=== PATIENT | female | born 1970 | race Hispanic/Latino ===

== ENCOUNTER 2016-06-27 17:18 | Emergency (ER) | payer OTHER ==
[~2016-06-27] VITALS: Ht 162.6 cm; Wt 82.1 kg
[~2016-06-27 17:18] MED LIST: ALBUTEROL0.09 MG/A1 INH; ANTIVERT 25MG #1 PAC PO; ASPIRIN CHILDRE81 MG PO; ASPIRIN EC81 M1 PO; COZAAR50 M1 PO; DOLOBID500 MG PO; FLEXERIL10 MG PO; GLUCOPHAGE1000 M1 PO; HUMALOG100 U/ML SC; HYDROCHLOROTH12.5 M2 PO; IBU800 MG PO; IBUPROFEN800 MG PO; LANTUS INS100 UNITS/ SC; LOSARTAN POTAS100 MG PO; LOSARTAN POTASS50 MG PO; MEDROL DOSEPAK1 PAC PO; METFORMIN HYD1000 MG PO; MOTRIN600 MG PO; PERCOCET 325 MG1 TA2 PO; PERCOCET 5-3251 EACH PO; PRAVASTATIN SOD20 M2 PO; QUETIAPINE FUMA50 MG PO; ROBITUSSIN W/CO10 ML PO; SERTRALINE HCL100 MG PO; TESSALON PERLE100 M1 PO; TESSALON PERLE100 MG PO; TRAMADOL HCL50 M1 PO; TRAMADOL50 MG PO; VOLTAREN75 MG PO
[2016-06-27 17:52] LABS: ABSOLUTE BASOPHIL COUNT 0 /CUMM (0.0-0.2); ABSOLUTE EOSINOPHIL COUNT 0.1 /CUMM (0.0-0.7); ABSOLUTE GRANULOCYTE CT 6.1 /CUMM (1.4-6.5); ABSOLUTE LYMPH COUNT 1.6 /CUMM (1.2-3.4); ABSOLUTE MONOCYTE COUNT 0.6 /CUMM (0.10-0.60); BASOPHIL % 0.3 % (0.0-2.0); EOSINOPHIL % 1.1 % (0-5); GRANULOCYTE % 72.2 % (42.2-75.2); HEMATOCRIT 39.8 % (37-47); MEAN CORPUSCULAR HGB 28.4 PG (27.0-31.0); MEAN CORPUSCULAR HGB CONC 33.8 G/DL (33.0-37.0); MEAN PLATELET VOLUME 7.7 FL (7.4-10.4); PLATELET COUNT 329 /CUMM (130-400); RED BLOOD CELL CT 4.74 /CUMM (4.20-5.40); WHITE BLOOD CELL COUNT 8.5 /CUMM (4.8-10.8)
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
[2016-06-27] MEDS ORDERED: LANTUS100 UNIT/1 SC ×2 (18:26)
[2016-06-27] MEDS ORDERED: TRAZODONE HCL50 M1 PO (18:27)
[2016-06-27] MEDS ORDERED: TRAZODONE HCL100 M1 PO (18:27)
[2016-06-27] MEDS ORDERED: NOVOLOG FL100 UNIT/1 SC (18:28)
--- NOTE | 2016-06-27 19:38 | RADIOLOGY REPORT ---
EXAMINATION: XR CHEST CLINICAL INFORMATION: Chest pain. Assess for cardiomegaly. COMPARISON: Chest radiography 05/24/2016. TECHNIQUE: PA and lateral views of the chest were obtained. FINDINGS: The lungs are mildly hypoexpanded. No focal consolidation, pleural effusion, pulmonary edema, or pneumothorax. Mediastinal contours are unchanged. No evidence of cardiomegaly. No acute osseous abnormalities. IMPRESSION: Hypoexpanded lungs without acute pulmonary pathology demonstrated.
[2016-06-27 22:23] VITALS: BP 143/75
== END 2016-06-27 23:20 ==
LOC: ERH 17:18
PROVIDERS: Physician Assistant
DX: R07.89 Other chest pain (principal)
CPT/HCPCS: 93005; 93010; 96374; 96376

== ENCOUNTER 2016-09-24 22:47 | Emergency (ER) | payer OTHER ==
[~2016-09-24 22:47] MED LIST changes: +LANTUS100 UNIT/1 SC; +NOVOLOG FL100 UNIT/1 SC; +TRAZODONE HCL100 M1 PO; +TRAZODONE HCL50 M1 PO
[2016-09-24 23:12] LABS: ABSOLUTE BASOPHIL COUNT 0.1 /CUMM (0.0-0.2); ABSOLUTE EOSINOPHIL COUNT 0.1 /CUMM (0.0-0.7); ABSOLUTE GRANULOCYTE CT 5.8 /CUMM (1.4-6.5); ABSOLUTE LYMPH COUNT 2.4 /CUMM (1.2-3.4); ABSOLUTE MONOCYTE COUNT 0.7 /CUMM (0.10-0.60); BASOPHIL % 0.9 % (0.0-2.0); EOSINOPHIL % 1.2 % (0-5); GRANULOCYTE % 63.7 % (42.2-75.2); HEMATOCRIT 41.7 % (37-47); MEAN CORPUSCULAR HGB 28.5 PG (27.0-31.0); MEAN CORPUSCULAR VOLUME 83.9 FL (81.0-99.0); MEAN PLATELET VOLUME 7.8 FL (7.4-10.4); PLATELET COUNT 317 /CUMM (130-400); RBC DISTRIBUTION WIDTH 12.6 % (11.5-14.5); RED BLOOD CELL CT 4.97 /CUMM (4.20-5.40); WHITE BLOOD CELL COUNT 9.1 /CUMM (4.8-10.8)
--- NOTE | 2016-09-24 23:34 | RADIOLOGY REPORT ---
EXAMINATION: CHEST 2 VIEWS CLINICAL INFORMATION: Chest pain. COMPARISON: 06/27/2016. TECHNIQUE: PA and lateral views of the chest were obtained. FINDINGS: The cardiac silhouette is not enlarged. The mediastinal and hilar contours are unremarkable. There are neither pleural effusions nor pneumothoraces. There are no consolidations. The osseous structures are unremarkable. IMPRESSION: No evidence for acute disease.
[2016-09-25 01:05] VITALS: BP 131/91
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
[2016-09-25] MEDS ORDERED: ULTRAM50 M1 PO (02:23)
== END 2016-09-25 02:30 ==
LOC: ERH 22:47
PROVIDERS: Emergency Medicine
DX: R07.1 Chest pain on breathing (principal)
CPT/HCPCS: 93005; 93010

== ENCOUNTER 2016-11-11 12:31 | Emergency (ER) | payer OTHER ==
[~2016-11-11] VITALS: Ht 162.6 cm; Wt 82.1 kg
[~2016-11-11 12:31] MED LIST changes: +ULTRAM50 M1 PO
--- NOTE | 2016-11-11 12:53 | ED GENERAL ADULT ---
History of Present Illness General Chief Complaint: Fall Stated Complaint: FALL R KNEE PAIN, DIZZINESS Source: patient Exam Limitations: no limitations Vital Signs & Intake/Output Vital Signs & Intake/Output Vital Signs Date Time Temp Pulse Resp B/P B/P Pulse O2 O2 Flow FiO2 Mean Ox Delivery Rate 11/11 1306 98 Room Air 11/11 1233 96.0 125 20 90/63 98 Room Air Allergies Coded Allergies: adhesive (Intermediate, RASH CLEAR/PAPER TAPE 09/24/16) celecoxib (From Celebrex) (Intermediate, RASH 09/24/16) escitalopram (From Lexapro) (Intermediate, RASH 09/24/16) triamcinolone (Intermediate, RASH 09/24/16) NSAIDS (Non-Steroidal Anti-Inflamma (ULCER 09/24/16) latex (RASH 09/24/16) Reconcile Medications Albuterol Sulfate (Proair Hfa) 90 MCG HFA.AER.AD 2 PUF INH Q4-6 PRN PRN SHORTNESS OF BREATH (Reported) Hydrochlorothiazide 12.5 MG TABLET 1 TAB PO DAILY WATER PILL (Reported) Insulin Aspart, Recombinant (Novolog Flexpen) 100 UNIT/ML INSULN.PEN 8 UNITS SC 4 TIMES/DAY DM (Reported) Insulin-Lantus (Lantus) 100 UNIT/ML VIAL 50 UNITS SC QPM DM (Reported) Losartan Potassium (Cozaar) 50 MG TABLET 1 TAB PO DAILY BP (Reported) Metformin HCl (Glucophage) 1,000 MG TABLET 1 TAB PO BID DM (Reported) Pravastatin Sodium 20 MG TABLET 1 TAB PO DAILY CHOLESTEROL (Reported) Sertraline HCl 100 MG TABLET 1 TAB PO DAILY MENTAL HEALTH (Reported) Sitagliptin Phos/Metformin HCl (Janumet 50-1,000 MG Tablet) 50 MG-1,000 MG TABLET 1 TAB PO BID DM (Reported) Tramadol HCl (Ultram) 50 MG TABLET 1-2 TAB PO Q6PRN PRN severe pain Trazodone HCl 100 MG TABLET 1 TAB PO QPM SLEEP (Reported) Triage Note: PT TO ED C/O RIGHT KNEE PAIN 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 STATES THE BRAKE ON HER WALKER GAVE OUT CAUSING HER TO FALL. PT APPEARS SWEATY, STATES IT'S FROM WALKING. ALSO C/O "A LITTLE DIZZINESS WITH WALKING". FINGERSTICK 237 IN TRIAGE. Triage Nurses Notes Reviewed? yes Onset: Just prior to arrival Duration: day(s): (1) Timing: no prior history Injury Environment: home Severity: moderate Severity Numbers: 7 Modifying Factors: Improves With: immobilization. Worsens With: movement. : No Patient currently breastfeeds: No HPI: Patient is a 46-year-old female presenting to the emergency department with chief complaint of right knee pain after fall prior to arrival. She reports that she was walking with her walker and she is trying to lift it up a few steps and they got, step and flipped over the walker. No head injury or loss of consciousness. She reports that when she got up she felt dizzy. No palpitations. Denies having shortness of breath. No visual changes. Pain in the knee is worse with movement and palpation. Denies taking anything for pain prior to arrival. (DAMIEN COLLINS) Past History Travel History Traveled to [place] past 21 day No Medical History Any Pertinent Medical History? see below for history Neurological: migraine EENT: NONE Cardiovascular: hypertension, hyperlipidemia Respiratory: NONE Gastrointestinal: ULCER Hepatic: NONE Renal: NONE Musculoskeletal: ARTHRITIS Psychiatric: anxiety, depression Endocrine: diabetes Blood Disorders: NONE Cancer(s): NONE EDUCATIONAL AID/Reproductive: NONE Surgical History Surgical History: hysterectomy, EXTRA BONE REMOVED FROM FOOT Psychosocial History What is your primary language Zambian Tobacco Use: Quit >30 days ago ETOH Use: denies use Illicit Drug Use: denies illicit drug use Family History Family History, If Any: MOTHER FH: heart disease Hx Contributory? No (DAMIEN COLLINS) Review of Systems Review of Systems Constitutional: Reports: no symptoms. Comments Review of systems: See HPI, All other systems negative. Constitutional, no chills fever or weight loss HEENT: No visual changes no sore throat no congestion Cardiovascular: NO CP, No palpitation , orthopnea or ankle swelling Skin, no jaundice no rashes Respiratory: No dyspnea cough sputum or hemoptysis GI: No nausea no vomiting : No dysuria No hematuria Muscle skeletal: no back pain, no neck pain, Neurologic: No numbness no confusion no bello Psych: No stress anxiety or depression,. Heme/endocrine: No bruising no bleeding no polyuria or polydipsia Immunology: No splenectomy or history of AIDS (DAMIEN COLLINS) Physical Exam Physical Exam General Appearance: no apparent distress, alert, awake, diaphoretic Comments: Well-developed well-nourished person in no acute distress HEENT: extraocular motion intact, no nystagmus. Pupils equally round and reactive to light and accommodation. Nose is atraumatic. External auditory canal and Tympanic membranes clear. Pharynx normal. No swelling or edema. Neck: Supple, no lymphadenopathy, normal range of motion without pain or tenderness Back: Nontender, no CVA tenderness. Full range of motion Cardiovascular: tachy rate and rhythms no murmurs rubs or gallops, normal JVP Respiratory: Chest nontender. No respiratory distress.breath sounds clear to auscultation bilaterally Abdomen: Soft, nontender nondistended, no appreciable organomegaly. Normal bowel sounds. No ascites Extremity: No edema, no calf tenderness to palpation, normal and equal pulses. Tender to palpation over the medial and lateral aspect of the right patella. Pain to palpation over the right popliteal region as well. No obvious edema or ecchymosis noted over the right patella. Negative anterior and posterior drawer test of the right knee. Neuro: Alert oriented x3, motor sensory normal, cranial nerves II through XII grossly intact. Cerebellar testing is unremarkable. Skin: No appreciable rash on exposed skin, skin is warm, slightly diaphoretic. Psych: Mood and affect is normal, memory and judgment is normal. Core Measures ACS in differential dx? Yes CVA/TIA Diagnosis: No Severe Sepsis Present: No Septic Shock Present: No (DOLORES VAUGHN,DAMIEN) Progress Differential Diagnoses I considered the following diagnoses in my evaluation of the patient: ACS, electrolyte abnormality, orthostatic hypotension, mechanical fall, contusion, patellar fracture Plan of Care: Orders Procedure Date/time Status TROPONIN LEVEL 11/11 1700 Complete EKG 11/11 1700 Active MISTAKE 11/11 1252 Active Telemetry/Vocal Performer 11/11 1252 Active URINE 11/11 1252 Complete URINE DRUG SCREEN FOR ER ONLY 11/11 1252 Complete URINALYSIS 11/11 1252 Complete TSH REFLEX 11/11 1252 Complete TROPONIN LEVEL 11/11 1252 Complete COMPREHENSIVE METABOLIC PANEL 11/11 1252 Complete CBC WITHOUT DIFFERENTIAL 11/11 1252 Complete EKG 11/11 1241 Active Laboratory Tests 11/11/16 1714: Troponin I < 0.01 11/11/16 1320: Urine Opiates Screen < 100.00, Methadone Screen < 40, Barbiturate Screen < 60, Ur Phencyclidine Scrn < 6.00, Amphetamines Screen 172, U Benzodiazepines Scrn < 85, Urine Cocaine Screen < 50, Urine Cannabis Screen 24.50, Urinalysis LIGHT H, Urine Color MARA, Urine Clarity CLEAR, Urine pH 5.5, Ur Specific [place] >= 1.030, Urine Protein 100 H, Urine Ketones TRACE H, Urine Nitrite NEG, Urine Bilirubin NEG@ICTO, Urine Urobilinogen 1.0, Ur Leukocyte Esterase NEG, Ur Microscopic SEDIMENT EXAMINED, Urine RBC 1-3, Urine WBC 1-3 H, Ur Epithelial Cells MOD H, Urine Bacteria MANY H, Urine Mucus FEW, Urine Hemoglobin NEG, Urine Glucose NEG, Urine Test NEGATIVE 11/11/16 1309: Anion Gap 15, Estimated GFR 60, BUN/Creatinine Ratio 17.0, Glucose 219 H, Calcium 9.0, Total Bilirubin 0.6, AST 17, ALT 27, Alkaline Phosphatase 78, Troponin I < 0.01, Total Protein 6.7, Albumin 4.0, Globulin 2.7, Albumin/ Globulin Ratio 1.5, TSH &T3 &Free T4 Intrp 1.940, CBC w Diff NO MAN DIFF REQ, RBC 4.95, MCV 83.7, MCH 28.3, RDW 12.9, MPV 8.1, Gran % 78.0 H, Lymphocytes % 14.8 L, Monocytes % 5.9, Eosinophils % 0.7, Basophils % 0.6, Absolute Granulocytes 7.5 H, Absolute Lymphocytes 1.4, Absolute Monocytes 0.6, Absolute Eosinophils 0.1, Absolute Basophils 0.1, PUBS MCHC 33.8 Diagnostic Imaging: Viewed by Me: Radiology Read. Discussed w/RAD: Radiology Read. CXR Impression: PATIENT: MALORIE PHILLIP PRESENT AGE : 46 PATIENT ACCOUNT NO: [id number] : 71 LOCATION: [facility] ORDERING PHYSICIAN: DAMIEN VAUGHN SERVICE DATE: 11/11/16-125 EXAM TYPE: RAD - XRY-CHEST XRAY, PA AND LATERAL; XRY-KNEE COMPLETE RIGHT EXAMINATION: KNEE, RIGHT AND CHEST CLINICAL INFORMATION: Chest pressure. Presyncope. COMPARISON: None TECHNIQUE: Four views of the right knee. Chest 2 views. FINDINGS: CHEST: Both lungs are well-expanded and clear of acute process. The heart size and pulmonary vascularity is normal. No gross bony abnormality seen. RIGHT KNEE: There is no visible acute fracture, dislocation or soft tissue abnormality. IMPRESSION: Unremarkable chest exam. Unremarkable right knee exam. DICTATED BY: MINI GILLETTE MD DATE/TIME DICTATED:11/11/161399 FOOD SERVER:RJ DATE/TIME TRANSCRIBED:11/11/161399 CONFIDENTIAL, DO NOT COPY WITHOUT APPROPRIATE AUTHORIZATION. <Electronically signed in Other Vendor System> SIGNED BY: MINI GILLETTE MD 11/11/16 1406 Initial ED EKG: SINUS TACHY, 107 BPM, NON SPECIFIC T ABNORMALITIES Repeat EKG: changed (NSR AT 89 BPM) Comments: Patient is afebrile in no acute distress, appears slightly diaphoretic on arrival. Slightly tachycardic an EKG. No complaint of chest pain. Likely mechanical fall as patient reports that she tripped over her walker and then fell. She experienced dizziness with standing up. No signs of anemia or dehydration. X-rays negative of the knee. Olaf wrap applied. She'll follow up with PCP. Discussed with Dr. Mcdaniels and he agrees with plan. (DAMIEN COLLINS) Departure Departure Time of Disposition: 1804 Disposition: HOME OR SELF CARE Condition: Stable Clinical Impression Primary Impression: Knee contusion Qualifiers: Encounter type: initial encounter Laterality: right Qualified Code: S80.01XA - Contusion of right knee, initial encounter Secondary Impressions: Dizziness Referrals: UNKNOWN (PCP/Family) Additional Instructions: Follow-up with your primary care physician coming appointment. Take Tylenol as directed [id number] without the pain. Rest ice and elevate affected extremity. Wear Olaf wrap for support. Return for worsening symptoms or concerns. She'll check her blood glucose level daily. Departure Forms: Customer Survey General Discharge Information (DAMIEN COLLINS) PA/HIGHWAY CONSTRUCTION INSPECTOR Co-Sign Statement Statement: ED Attending supervision documentation- [] I saw and evaluated the patient. I have also reviewed all the pertinent lab results and diagnostic results. I agree with the findings and the plan of care as documented in the PA's/HIGHWAY CONSTRUCTION INSPECTOR's documentation. [x] I have reviewed the ED Record and agree with the PA's/HIGHWAY CONSTRUCTION INSPECTOR's documentation. [] Additions or exceptions (if any) to the PAs/HIGHWAY CONSTRUCTION INSPECTOR's note and plan are summarized below: [] (ODALIS FAIR,CHRISTINA Barrios) Critical Care Note Critical Care Note Critical Care Time: non-applicable (DOLORES VAUGHN,DAMIEN)
[2016-11-11 13:21] LABS: ABSOLUTE BASOPHIL COUNT 0.1 /CUMM (0.0-0.2); ABSOLUTE EOSINOPHIL COUNT 0.1 /CUMM (0.0-0.7); ABSOLUTE GRANULOCYTE CT 7.5 /CUMM (1.4-6.5); ABSOLUTE LYMPH COUNT 1.4 /CUMM (1.2-3.4); ABSOLUTE MONOCYTE COUNT 0.6 /CUMM (0.10-0.60); BASOPHIL % 0.6 % (0.0-2.0); EOSINOPHIL % 0.7 % (0-5); HEMATOCRIT 41.5 % (37-47); MEAN CORPUSCULAR HGB 28.3 PG (27.0-31.0); MEAN CORPUSCULAR HGB CONC 33.8 G/DL (33.0-37.0); MEAN CORPUSCULAR VOLUME 83.7 FL (81.0-99.0); MEAN PLATELET VOLUME 8.1 FL (7.4-10.4); PLATELET COUNT 285 /CUMM (130-400); RBC DISTRIBUTION WIDTH 12.9 % (11.5-14.5); RED BLOOD CELL CT 4.95 /CUMM (4.20-5.40); WHITE BLOOD CELL COUNT 9.6 /CUMM (4.8-10.8)
--- NOTE | 2016-11-11 14:06 | RADIOLOGY REPORT ---
EXAMINATION: KNEE, RIGHT AND CHEST CLINICAL INFORMATION: Chest pressure. Presyncope. COMPARISON: None TECHNIQUE: Four views of the right knee. Chest 2 views. FINDINGS: CHEST: Both lungs are well-expanded and clear of acute process. The heart size and pulmonary vascularity is normal. No gross bony abnormality seen. RIGHT KNEE: There is no visible acute fracture, dislocation or soft tissue abnormality. IMPRESSION: Unremarkable chest exam. Unremarkable right knee exam.
[2016-11-11] MEDS ORDERED: JANUMET 50-1,01 EACH PO (14:21)
[2016-11-11] MEDS ORDERED: PROAIR HFA8.5 GM INH (14:22)
[2016-11-11 18:16] VITALS: BP 103/65
[2016-11-12] MEDS ORDERED: ULTRAM50 M1 PO (21:47)
== END 2016-11-11 18:30 ==
LOC: ERH 12:31
PROVIDERS: Physician Assistant
DX: S80.01XA Contusion of right knee, initial encounter (principal); R42 Dizziness and giddiness; I10 Essential (primary) hypertension; Z87.891 Personal history of nicotine dependence; E11.9 Type 2 diabetes mellitus without complications; Z79.4 Long term (current) use of insulin; W10.9XXA Fall (on) (from) unspecified stairs and steps, initial encounter
CPT/HCPCS: 73562-RT; 80307; 81001; 81025; 93005; 93010

== ENCOUNTER 2016-11-12 18:04 | Emergency (ER) | payer OTHER ==
[~2016-11-12] VITALS: Ht 162.6 cm; Wt 81.6 kg
[~2016-11-12 18:04] MED LIST changes: +JANUMET 50-1,01 EACH PO; +PROAIR HFA8.5 GM INH
--- NOTE | 2016-11-12 18:50 | ED MVC/FALL/TRAUMA COMPLAINT ---
History of Present Illness General Chief Complaint: Fall Stated Complaint: MULTIPLE COMPLAINTS OF PAIN S/P FALL Source: patient, old records Exam Limitations: no limitations Vital Signs & Intake/Output Vital Signs & Intake/Output Vital Signs Date Time Temp Pulse Resp B/P B/P Pulse O2 O2 Flow FiO2 Mean Ox Delivery Rate 11/12 2108 99.1 93 18 125/70 97 Room Air 11/12 1912 105 98 Room Air Room Air 11/12 1813 96.8 105 109/76 ED Intake and Output 11/13 0000 11/12 1200 Intake Total 0 Output Total Balance 0 Intake, Oral 0 Patient 180 lb Weight Allergies Coded Allergies: adhesive (Intermediate, RASH CLEAR/PAPER TAPE 09/24/16) celecoxib (From Celebrex) (Intermediate, RASH 09/24/16) escitalopram (From Lexapro) (Intermediate, RASH 09/24/16) triamcinolone (Intermediate, RASH 09/24/16) NSAIDS (Non-Steroidal Anti-Inflamma (ULCER 09/24/16) latex (RASH 09/24/16) Reconcile Medications Albuterol Sulfate (Proair Hfa) 90 MCG HFA.AER.AD 2 PUF INH Q4-6 PRN PRN SHORTNESS OF BREATH (Reported) Hydrochlorothiazide 12.5 MG TABLET 1 TAB PO DAILY WATER PILL (Reported) Insulin Aspart, Recombinant (Novolog Flexpen) 100 UNIT/ML INSULN.PEN 8 UNITS SC 4 TIMES/DAY DM (Reported) Insulin-Lantus (Lantus) 100 UNIT/ML VIAL 50 UNITS SC QPM DM (Reported) Losartan Potassium (Cozaar) 50 MG TABLET 1 TAB PO DAILY BP (Reported) Pravastatin Sodium 20 MG TABLET 1 TAB PO DAILY CHOLESTEROL (Reported) Sertraline HCl 100 MG TABLET 1 TAB PO DAILY MENTAL HEALTH (Reported) Sitagliptin Phos/Metformin HCl (Janumet 50-1,000 MG Tablet) 50 MG-1,000 MG TABLET 1 TAB PO BID DM (Reported) Tramadol HCl (Ultram) 50 MG TABLET 1-2 TAB PO Q6PRN PRN severe pain Tramadol HCl (Ultram) 50 MG TABLET 1 TAB PO BIDP PRN PAIN Trazodone HCl 100 MG TABLET 1 TAB PO QPM SLEEP (Reported) Triage Note: PER PT FELL YESTERDAY AFTERNOON CO RT SHOULDER PAIN L KNEE AND L WRIST PAIN ARRIVES VIA EMS. Triage Nurses Notes Reviewed? yes Duration: constant Timing: recent history Severity: severe Severity Numbers: 7 Method of Injury: fall : No Patient currently breastfeeds: No HPI: Patient is a 46-year-old female who states that she has a chronic history of right knee pain where patient uses a walker for fall prevention who presents emergency room in which she was evaluated yesterday for a mechanical fall where she states that she fell over her walker and patient struck the right knee to the ground. Patient was evaluated for x-rays of the right knee and chest noted to be unremarkable acute findings. Patient also had blood work EKG obtained showing unremarkable findings. Patient returns to the emergency room brought in by ambulance for concerns of today having pain to the right ankle right shoulder and left wrist due to the fall yesterday. Patient states that she had no pain yesterday to these locations during her emergency room visit however the pain started today patient denies any new falls or trauma. Patient states that the Tylenol advised to take for pain is not helping her symptoms. (PAOLO WILKES) Past History Travel History Traveled to [place] past 21 day No Medical History Any Pertinent Medical History? 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 No (PAOLO WILKES) Review of Systems Review of Systems Constitutional: Reports: no symptoms. Eyes: Reports: no symptoms. Ears, Nose, Throat, Mouth: Reports: no symptoms. Respiratory: Reports: no symptoms. Cardiovascular: Reports: no symptoms. Gastrointestinal/Abdominal: Reports: no symptoms. Genitourinary: Reports: no symptoms. Musculoskeletal: Reports: see HPI, joint pain. Skin: Reports: no symptoms. Neurological/Psychological: Reports: no symptoms. All Other Systems: Reviewed and Negative (PAOLO WILKES) Physical Exam Physical Exam General Appearance: no apparent distress, alert Comments: Well-developed well-nourished no apparent distress. HEENT: Atraumatic, extraocular motion intact Neck: Supple, no lymphadenopathy No central spinous tenderness Back: Nontender Respiratory: No respiratory distress Extremities: No edema, full range of motion Neuro: Alert and oriented x3 Psych: Mood affect normal, normal memory normal judgment. Diagram Body: 1) Generalized left wrist point tenderness noted, normal inspection, full active range of motion noted no scaphoid tenderness no thumb point tenderness 2) Normal inspection mild right lateral malleoli point tenderness full active range of motion noted 3) Normal inspection, full active range of motion noted generalized glenohumeral point tenderness Core Measures ACS in differential dx? No Severe Sepsis Present: No Septic Shock Present: No (RUBI VAUGHN,PAOLO) Progress Differential Diagnosis: aoritic dissection, abd injury, C/T/L spine injury, ext injury, ICH, pelvis injury, pnemothorax Plan of Care: Orders Procedure Date/time Status XRY-WRIST COMPLETE-LEFT 11/12 1932 Active XRY-SHOULDER COMPLETE-RIGHT 11/12 1932 Active XRY-ANKLE 3 OR MORE VIEWS R 11/12 1932 Active No osseous injury noted on x-ray findings from where patient was symptomatically tender. Wrist but was placed to left wrist pre-and post-neurovascular was intact. No concerns of scaphoid tenderness or first digit left hand point tenderness (PAOLO WILKES) Diagnostic Imaging: Viewed by Me: Radiology Read. Radiology Impression: no acute abnormality Comments: PATIENT: MALORIE PHILLIP PRESENT AGE: 46 PATIENT ACCOUNT NO: [id number] : 71 LOCATION: [facility] ORDERING PHYSICIAN: PAOLO VAUGHN SERVICE DATE: 11/12/16 EXAM TYPE: RAD - XRY-ANKLE 3 OR MORE VIEWS R EXAMINATION: XR ANKLE, RIGHT CLINICAL INFORMATION: Right ankle pain. COMPARISON: Plain films of the right ankle 10/25/2015. TECHNIQUE: AP, lateral, and mortise views of the right ankle. FINDINGS: Minimal soft tissue swelling surrounding the right ankle, notably along the lateral aspect of the right ankle joint. No acute fracture or dislocation of the right ankle. The ankle mortise is intact. IMPRESSION: No acute fracture or dislocation of the right ankle. The ankle mortise is intact. DICTATED BY: PRASHANT CLEVELAND MD DATE/TIME DICTATED:11/12/162100 COLLECTION COORDINATOR:RJ PATIENT: MALORIE PHILLIP PRESENT AGE: 46 PATIENT ACCOUNT NO: [id number] : 71 LOCATION: [facility] ORDERING PHYSICIAN: PAOLO VAUGHN SERVICE DATE: 11/12/16 EXAM TYPE: RAD - XRY-SHOULDER COMPLETE-RIGHT EXAMINATION: XR SHOULDER, RIGHT CLINICAL INFORMATION: Right shoulder and right ankle pain. COMPARISON: None. TECHNIQUE: Internal rotation, external rotation, transscapular and axillary views of the right shoulder. FINDINGS: The bones and soft tissues appear unremarkable. No acute fracture of the right shoulder is identified. Glenohumeral and acromioclavicular alignment is anatomic with normal joint space. No abnormal soft tissue calcifications. The right lung appears hypoinflated. IMPRESSION: No acute fracture or dislocation of the right shoulder. The right acromioclavicular joint is intact. PATIENT: MALORIE PHILLIP PRESENT AGE: 46 PATIENT ACCOUNT NO: [id number] : 72 LOCATION: [facility] ORDERING PHYSICIAN: PAOLO VAUGHN SERVICE DATE: 11/12/16 EXAM TYPE: RAD - XRY-WRIST COMPLETE-LEFT EXAMINATION: XR WRIST, LEFT CLINICAL INFORMATION: Left wrist pain following fall. COMPARISON: MRI of the left wrist 12/31/2014. TECHNIQUE: AP, lateral, and oblique views of the left wrist. FINDINGS: No acute fracture or dislocation of the left wrist. Questionable mild subluxation at the level of the base of the thumb. Carpal alignment appears grossly maintained. There are mild degenerative changes involving the first carpal metacarpal joint. IMPRESSION: No acute fracture or dislocation of the left wrist. There is questionable mild subluxation at the base of the left thumb, without dislocation. Correlate with physical exam and tenderness within this region. Mild degenerative changes involving the first carpal metacarpal joint. (RUBI VAUGHN,PAOLO) Departure Departure Disposition: HOME OR SELF CARE Condition: Stable Clinical Impression Primary Impression: Right shoulder pain Secondary Impressions: Left wrist pain, Right ankle pain Referrals: BINA HALL,ERNESTINA Avalos UNKNOWN (PCP/Family) Additional Instructions: As discussed begin icing the area directly 20 minutes every 2 hours. Begin the prescription tramadol for pain. If no better in one week follow-up with with pediatric Ernestina Florian MD for further evaluation treatment. Prescriptions waiting at [facility]. If symptoms worsen return to emergency room. Begin using the wrist splint and taken move her wrist without pain Departure Forms: Customer Survey General Discharge Information Prescriptions: Current Visit Scripts Tramadol HCl (Ultram) 1 TAB PO BIDP PRN PAIN #8 TAB (PAOLO WILKES) PA/CRAB FISHERMAN Co-Sign Statement Statement: ED Attending supervision documentation- I saw and evaluated the patient. I have also reviewed all the pertinent lab results and diagnostic results. I agree with the findings and the plan of care as documented in the PA's/CRAB FISHERMAN's documentation. x I have reviewed the ED Record and agree with the PA's/CRAB FISHERMAN's documentation. [] Additions or exceptions (if any) to the PAs/CRAB FISHERMAN's note and plan are summarized below: [] (STANLEY HALL,FISH)
--- NOTE | 2016-11-12 21:05 | RADIOLOGY REPORT ---
EXAMINATION: XR WRIST, LEFT CLINICAL INFORMATION: Left wrist pain following fall. COMPARISON: MRI of the left wrist 12/31/2014. TECHNIQUE: AP, lateral, and oblique views of the left wrist. FINDINGS: No acute fracture or dislocation of the left wrist. Questionable mild subluxation at the level of the base of the thumb. Carpal alignment appears grossly maintained. There are mild degenerative changes involving the first carpal metacarpal joint. IMPRESSION: No acute fracture or dislocation of the left wrist. There is questionable mild subluxation at the base of the left thumb, without dislocation. Correlate with physical exam and tenderness within this region. Mild degenerative changes involving the first carpal metacarpal joint.
--- NOTE | 2016-11-12 21:05 | RADIOLOGY REPORT ---
EXAMINATION: XR ANKLE, RIGHT CLINICAL INFORMATION: Right ankle pain. COMPARISON: Plain films of the right ankle 10/25/2015. TECHNIQUE: AP, lateral, and mortise views of the right ankle. FINDINGS: Minimal soft tissue swelling surrounding the right ankle, notably along the lateral aspect of the right ankle joint. No acute fracture or dislocation of the right ankle. The ankle mortise is intact. IMPRESSION: No acute fracture or dislocation of the right ankle. The ankle mortise is intact.
--- NOTE | 2016-11-12 21:07 | RADIOLOGY REPORT ---
EXAMINATION: XR SHOULDER, RIGHT CLINICAL INFORMATION: Right shoulder and right ankle pain. COMPARISON: None. TECHNIQUE: Internal rotation, external rotation, transscapular and axillary views of the right shoulder. FINDINGS: The bones and soft tissues appear unremarkable. No acute fracture of the right shoulder is identified. Glenohumeral and acromioclavicular alignment is anatomic with normal joint space. No abnormal soft tissue calcifications. The right lung appears hypoinflated. IMPRESSION: No acute fracture or dislocation of the right shoulder. The right acromioclavicular joint is intact.
[2016-11-12 21:09] VITALS: BP 125/70
[2016-11-12] MEDS ORDERED: ULTRAM50 M1 PO (21:47)
== END 2016-11-12 21:55 ==
LOC: ERH 18:04
DX: M25.511 Pain in right shoulder (principal); M25.532 Pain in left wrist; M25.571 Pain in right ankle and joints of right foot
CPT/HCPCS: 73030-RT; 73110-LT; 73610-RT

== ENCOUNTER 2016-11-29 20:00 | Emergency (ER) | payer OTHER ==
[~2016-11-29] VITALS: Ht 162.6 cm; Wt 82.1 kg
--- NOTE | 2016-11-29 20:05 | ED CARDIAC/CP/PALPITATIONS ---
History of Present Illness General Chief Complaint: Chest Pain Stated Complaint: BIBA C/O LEFT CHEST PAIN R/T STRESS Source: patient Exam Limitations: no limitations Vital Signs & Intake/Output Vital Signs & Intake/Output Vital Signs Date Time Temp Pulse Resp B/P B/P Pulse O2 O2 Flow FiO2 Mean Ox Delivery Rate 11/30 0020 98.6 73 18 137/82 96 Room Air 11/29 2202 96.1 88 18 139/89 97 Room Air 11/29 2136 97.0 81 20 146/80 97 Room Air 11/29 2010 Room Air 11/29 2002 97.3 88 18 184/96 98 Room Air ED Intake and Output 11/30 0000 11/29 1200 Intake Total Output Total Balance Patient 181 lb Weight Weight Reported by Patient Measurement Method Allergies Coded Allergies: adhesive (Intermediate, RASH CLEAR/PAPER TAPE 09/24/16) celecoxib (From Celebrex) (Intermediate, RASH 09/24/16) escitalopram (From Lexapro) (Intermediate, RASH 09/24/16) triamcinolone (Intermediate, RASH 09/24/16) NSAIDS (Non-Steroidal Anti-Inflamma (ULCER 09/24/16) latex (RASH 09/24/16) Reconcile Medications Albuterol Sulfate (Proair Hfa) 90 MCG HFA.AER.AD 2 PUF INH Q4-6 PRN PRN SHORTNESS OF BREATH (Reported) Aspirin (Ecotrin*) 81 MG TABLET.DR 1 TAB PO DAILY HEART/BLOOD (Reported) Hydrochlorothiazide 12.5 MG TABLET 1 TAB PO DAILY WATER PILL (Reported) Insulin Lispro (Humalog Kwikpen U-100) 100 UNIT/ML INSULN.PEN 8 UNITS SC QPM DM (Reported) Insulin-Lantus (Lantus) 100 UNIT/ML VIAL 50 UNITS SC QPM DM (Reported) Losartan Potassium (Cozaar) 50 MG TABLET 1 TAB PO DAILY BP (Reported) Oxycodone HCl/Acetaminophen (Percocet 5-325 MG Tablet) 5 MG-325 MG TABLET 1 TAB PO 4XDP PRN PAIN SIX...[id number] Pantoprazole Sodium 40 MG TABLET.DR 1 TAB PO DAILY GI (Reported) Pravastatin Sodium 20 MG TABLET 1 TAB PO DAILY CHOLESTEROL (Reported) Sertraline HCl 100 MG TABLET 1 TAB PO DAILY MENTAL HEALTH (Reported) Sitagliptin Phos/Metformin HCl (Janumet 50-1,000 MG Tablet) 50 MG-1,000 MG TABLET 1 TAB PO BID DM (Reported) Trazodone HCl 100 MG TABLET 1 TAB PO QPM SLEEP (Reported) Triage Nurses Notes Reviewed? yes Onset: Gradual Duration: hour(s):, waxing and waning Timing: recent history Quality/Severity: moderate Location: left chest Radiation: no radiation Activities at Onset: emotional stress, "My mother just ." Prior Chest Pain/Card Workup: negative stress test in july 2016 Associated Symptoms: worse with palpation HPI: 46 yo h/o diabetes, negative stress test Jul 2016, presents with left sided chest wall pain since 6:40pm. She notes that it is worse when she presses on her chest. She shares, "I am under a lot of stress. My mother just .... We just had the ... It's very stressful." She notes no shortness of breath, chills, wheezing, syncopal symptoms. She is otherwise well. Past History Travel History Traveled to [place] past 21 day No Medical History Any Pertinent Medical History? 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 No Review of Systems Review of Systems Constitutional: Reports: no symptoms. EENTM: Reports: no symptoms. Respiratory: Reports: no symptoms. Cardiovascular: Reports: no symptoms. GI: Reports: no symptoms. Genitourinary: Reports: no symptoms. Musculoskeletal: Reports: no symptoms. Skin: Reports: no symptoms. Neurological/Psychological: Reports: no symptoms. Hematologic/Endocrine: Reports: no symptoms. Immunologic/Allergic: Reports: no symptoms. All Other Systems: Reviewed and Negative Physical Exam Physical Exam General Appearance: well developed/nourished, mild distress Head: atraumatic, normal appearance Eyes: Bilateral: normal appearance, PERRL, EOMI. Ears, Nose, Throat: normal pharynx, normal ENT inspection Neck: normal inspection, supple, full range of motion Respiratory: normal breath sounds, no respiratory distress, FOCAL LEFT SIDED PARASTERNAL CHEST WALL TENDERNESS TO PALPATION. Cardiovascular: regular rate/rhythm Gastrointestinal: normal bowel sounds, soft, non-tender Back: normal inspection, normal range of motion Extremities: normal inspection Neurologic/Psych: no motor/sensory deficits, awake, alert, oriented x 3 Skin: intact, normal color, warm/dry Core Measures ACS in differential dx? No Severe Sepsis Present: No Septic Shock Present: No Progress Differential Diagnosis: mi vs unstable angina vs chest wall pain vs other. Plan of Care: Orders Procedure Date/time Status TROPONIN LEVEL 11/29 2314 Complete EKG 11/29 2314 Active EKG 11/29 2025 Active TROPONIN LEVEL 11/29 2005 Complete D-DIMER 11/29 2005 Complete COMPREHENSIVE METABOLIC PANEL 11/29 2005 Complete CBC WITHOUT DIFFERENTIAL 11/29 2005 Complete Laboratory Tests 11/29/16 2306: Troponin I < 0.01 11/29/16 2015: Anion Gap 11, Estimated GFR > 60, BUN/Creatinine Ratio 18.3, Glucose 249 H, Calcium 9.2, Total Bilirubin 0.4, AST 18, ALT 35, Alkaline Phosphatase 98, Troponin I < 0.01, Total Protein 6.9, Albumin 4.0, Globulin 2.9, Albumin/ Globulin Ratio 1.4, D-Dimer High Sensitivty < 200, CBC w Diff NO MAN DIFF REQ, RBC 4.64, MCV 84.7, MCH 28.5, RDW 13.6, MPV 8.2, Gran % 63.7, Lymphocytes % 26.1 , Monocytes % 8.3, Eosinophils % 1.4, Basophils % 0.5, Absolute Granulocytes 5.2 , Absolute Lymphocytes 2.1, Absolute Monocytes 0.7 H, Absolute Eosinophils 0.1, Absolute Basophils 0, PUBS MCHC 33.6 Diagnostic Imaging: Viewed by Me: Radiology Read. Discussed w/RAD: Radiology Read. CXR Impression: no acute abnormality, no infiltrates, normal size heart, normal mediastinum Initial ED EKG: normal axis, normal intervals, normal p-waves, normal QRS complex, normal sinus rhythm Repeat EKG: unchanged Departure Departure Disposition: HOME OR SELF CARE Condition: Stable Clinical Impression Primary Impression: Chest pain Referrals: UNKNOWN (PCP/Family) Departure Forms: Customer Survey General Discharge Information Prescriptions: Current Visit Scripts Oxycodone HCl/Acetaminophen (Percocet 5-325 MG Tablet) 1 TAB PO 4XDP PRN PAIN #6 TAB SIX...[id number] Comments 11/29/16, 22:10... discussed at length with patient... will check troponin/ekg at 3hours 11/30/16, 2am... discussed at length with patient... trop neg x 2... pt safe for discharge. pt to follow up with cardiology. Critical Care Note Critical Care Note Critical Care Time: non-applicable
[2016-11-29] MEDS ORDERED: ASPIRIN EC81 M1 PO (20:06)
[2016-11-29] MEDS ORDERED: PANTOPRAZOLE SO40 M1 PO (20:07)
[2016-11-29] MEDS ORDERED: HUMALOG KW100 UNIT/1 SC (20:09)
[2016-11-29 20:41] LABS: ABSOLUTE BASOPHIL COUNT 0 /CUMM (0.0-0.2); ABSOLUTE EOSINOPHIL COUNT 0.1 /CUMM (0.0-0.7); ABSOLUTE GRANULOCYTE CT 5.2 /CUMM (1.4-6.5); ABSOLUTE LYMPH COUNT 2.1 /CUMM (1.2-3.4); ABSOLUTE MONOCYTE COUNT 0.7 /CUMM (0.10-0.60); BASOPHIL % 0.5 % (0.0-2.0); EOSINOPHIL % 1.4 % (0-5); GRANULOCYTE % 63.7 % (42.2-75.2); HEMATOCRIT 39.3 % (37-47); MEAN CORPUSCULAR HGB 28.5 PG (27.0-31.0); MEAN CORPUSCULAR HGB CONC 33.6 G/DL (33.0-37.0); MEAN CORPUSCULAR VOLUME 84.7 FL (81.0-99.0); MEAN PLATELET VOLUME 8.2 FL (7.4-10.4); PLATELET COUNT 276 /CUMM (130-400); RBC DISTRIBUTION WIDTH 13.6 % (11.5-14.5); RED BLOOD CELL CT 4.64 /CUMM (4.20-5.40); WHITE BLOOD CELL COUNT 8.2 /CUMM (4.8-10.8)
--- NOTE | 2016-11-29 21:02 | RADIOLOGY REPORT ---
EXAMINATION: XR PORTABLE CHEST CLINICAL INFORMATION: Chest pain. COMPARISON: Chest x-ray 11/29/2016. TECHNIQUE: Portable frontal view of the chest was obtained. FINDINGS: No significant abnormality is noted involving the heart, lungs, mediastinum, bony thorax or soft tissues. IMPRESSION: Unremarkable chest examination.
[2016-11-29] MEDS ORDERED: PERCOCET 5-3251 EACH PO (22:07)
[2016-11-30 00:20] VITALS: BP 137/82
== END 2016-11-30 00:21 ==
LOC: ERH 20:00
PROVIDERS: Pediatrics
DX: R07.89 Other chest pain (principal)
CPT/HCPCS: 93005; 93010; 96374; J0131

== ENCOUNTER 2017-06-29 17:21 | Emergency (ER) | payer OTHER ==
[~2017-06-29] VITALS: Ht 162.6 cm; Wt 77.1 kg
[~2017-06-29 17:21] MED LIST changes: +ATIVAN0.5 M1 PO; +CIPRO500 M1 PO; +FLAGYL500 MG PO; +HUMALOG KW100 UNIT/1 SC; +LOMOTIL 2.5-0.1 EACH PO; +LOPERAMIDE2 M1 PO; +MOBIC15 M1 PO; +PANTOPRAZOLE SO40 M1 PO; +PERMETHRIN60 GM TOP; +ZOFRAN ODT4 M1 SL
[2017-06-29 20:55] VITALS: BP 118/65
[2017-06-29] MEDS ORDERED: CYCLOBENZAPRINE10 M1 PO (21:29)
[2017-06-29] MEDS ORDERED: PERCOCET 5-3251 EACH PO (21:29)
[2017-06-29] MEDS ORDERED: MEDROL4 M2 PO (21:29)
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
== END 2017-06-29 21:41 ==
LOC: ERH 17:21
DX: M54.5 Low back pain (principal); G89.29 Other chronic pain

== ENCOUNTER 2017-09-07 11:29 | Observation (INO) | payer OTHER ==
[~2017-09-07] VITALS: Ht 162.6 cm; Wt 83.5 kg
[~2017-09-07 11:29] MED LIST changes: +CYCLOBENZAPRINE10 M1 PO; +MEDROL4 M2 PO
--- NOTE | 2017-09-07 12:06 | ED CARDIAC/CP/PALPITATIONS ---
History of Present Illness General Chief Complaint: Chest Pain Stated Complaint: BIBA CP Source: patient Exam Limitations: no limitations Vital Signs & Intake/Output Vital Signs & Intake/Output Vital Signs Date Time Temp Pulse Resp B/P B/P Pulse O2 O2 Flow FiO2 Mean Ox Delivery Rate 09/077 98.2 70 18 147/80 99 Room Air 09/07 1924 97.5 81 20 147/75 96 09/07 1509 97.5 88 18 134/75 97 Room Air Room Air 09/07 1136 97.9 95 18 143/72 97 Room Air Room Air Allergies Coded Allergies: adhesive (Intermediate, RASH CLEAR/PAPER TAPE 05/02/17) celecoxib (From Celebrex) (Intermediate, RASH 05/02/17) escitalopram (From Lexapro) (Intermediate, RASH 05/02/17) triamcinolone (Intermediate, RASH 05/02/17) NSAIDS (Non-Steroidal Anti-Inflamma (ULCER 05/02/17) latex (RASH 05/02/17) Reconcile Medications Albuterol Sulfate (Proair Hfa) 90 MCG HFA.AER.AD 2 PUF INH Q4-6 PRN PRN SHORTNESS OF BREATH (Reported) Aspirin (Ecotrin*) 81 MG TABLET.DR 1 TAB PO DAILY HEART/BLOOD (Reported) Cyclobenzaprine HCl 10 MG TABLET 1 TAB PO TID muscle spasms Hydrochlorothiazide 12.5 MG TABLET 1 TAB PO DAILY WATER PILL (Reported) Insulin Lispro (Humalog Kwikpen U-100) 100 UNIT/ML INSULN.PEN 8 UNITS SC QPM DM (Reported) Insulin-Lantus (Lantus) 100 UNIT/ML VIAL 50 UNITS SC QPM DM (Reported) Loperamide HCl (Loperamide) 2 MG TABLET 1 TAB PO DAILY PRN DIARRHEA Losartan Potassium (Cozaar) 50 MG TABLET 1 TAB PO DAILY BP (Reported) Meloxicam (Mobic) 15 MG TABLET 1 TAB PO DAILY PRN pain Ondansetron (Zofran Odt) 4 MG TAB.RAPDIS 1 TAB SL TID NAUSEA Oxycodone HCl/Acetaminophen (Percocet 5-325 MG Tablet) 5 MG-325 MG TABLET 1-2 TAB PO BID pain Oxycodone HCl/Acetaminophen (Percocet 5-325 MG Tablet) 5 MG-325 MG TABLET 1 TAB PO Q6HR PRN pain Pantoprazole Sodium 40 MG TABLET.DR 1 TAB PO DAILY GI (Reported) Pravastatin Sodium 20 MG TABLET 1 TAB PO DAILY CHOLESTEROL (Reported) Sertraline HCl 100 MG TABLET 1 TAB PO DAILY MENTAL HEALTH (Reported) Sitagliptin Phos/Metformin HCl (Janumet 50-1,000 MG Tablet) 50 MG-1,000 MG TABLET 1 TAB PO BID DM (Reported) Trazodone HCl 100 MG TABLET 1 TAB PO QPM SLEEP (Reported) Triage Note: 47 YEAR OLD WOMAN C/O CHEST PAIN TO LEFT SIDE STARTING AT 0830 WHILE SITTING ON THE COUCH. PT REPORTS PAIN IS CONSTANT, DENIES SOB, DIAPHORESIS, ABDOMINAL UPSET OR NAUSEA. PT PLACED ON CM NOTED TO NSR IN THE 90'S. Triage Nurses Notes Reviewed? yes Onset: Gradual Duration: waxing and waning Timing: recent history Quality/Severity: severe Location: central Radiation: arms (LEFT) Activities at Onset: none Prior Chest Pain/Card Workup: SIMILAR SYMPTOMS Nitro Today/Relief: no nitro taken today Aspirin Today: no aspirin today HPI: Patient is a 47-year-old female with history of diabetes, hypertension, presenting to the emergency department to complaining of left-sided chest pain that started yesterday evening around 6 PM, went away while she was sleeping and then started again this morning around 8 AM and has been constant since onset. Pain is achy and throbbing. Worse with any type of movement of the left side of her chest. Patient per she had associated shortness of breath yesterday evening but none today. History of similar symptoms in the past, has been seen multiple times for similar symptoms, has been told it was her chest wall. Denies taking anything at home to help with the pain. She does report that she's been coughing extensively over the past one week. No palpitations. Denies any lower extremities swelling. No recent travel or surgeries. Denies any hormone supplements. (Twila VAUGHN,Susan) Past History Travel History Traveled to [place] past 21 day No Medical History Any Pertinent Medical History? 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 No (Susan Holguin) Review of Systems Review of Systems Constitutional: Reports: no symptoms. Comments Review of systems: See HPI, All other systems negative. Constitutional, no chills fever or weight loss HEENT: No visual changes no sore throat no congestion Cardiovascular: No palpitation , orthopnea or ankle swelling Skin, no jaundice no rashes Respiratory: No sputum or hemoptysis GI: No nausea no vomiting : No dysuria No hematuria Muscle skeletal: no back pain, no neck pain, Neurologic: No numbness no confusion Psych: No stress anxiety or depression,. Heme/endocrine: No bruising no bleeding no polyuria or polydipsia Immunology: No splenectomy or history of AIDS (Susan Holguin) Physical Exam Physical Exam General Appearance: well developed/nourished, no apparent distress, alert, awake , comfortable Cardiovascular: regular rate/rhythm Comments: Well-developed well-nourished person in no acute distress HEENT: Pupils equally round and reactive to light and accommodation. Nose is atraumatic. External auditory canal and Tympanic membranes clear. Pharynx normal. No swelling or edema. Neck: Normal inspection, full range of motion. Back: Nontender Cardiovascular: Regular rate and rhythms no murmurs rubs or gallops, normal JVP Respiratory: Chest is significantly tender to palpation over the left side of the chest. No crepitus palpated. No bruising or rashes noted over this area.. No respiratory distress.breath sounds clear to auscultation bilaterally Abdomen: Soft, nontender nondistended, no appreciable organomegaly. Normal bowel sounds. No ascites, no rebound or guarding. Extremity: No edema, no calf tenderness to palpation, normal and equal pulses. Full range of motion of lower extremities and right upper extremities. Pain reproducible with movement of the left upper extremity over the left side of the chest. Neuro: Alert oriented x3 Skin: No appreciable rash on exposed skin, skin is warm and dry. Psych: Mood and affect is normal, memory and judgment is normal. Core Measures ACS in differential dx? Yes CVA/TIA Diagnosis No Sepsis Present: No Sepsis Focused Exam Completed? No (Susan Holguin) Progress Differential Diagnosis: acs, PERICARDITIS, PANCREATITIS, PEPTIC ULCER DISEASE, PLEURISY, MUSCLE STRAIN, COSTOCHONDRITIS, PNEUMOTHORAX, PNEUMONIA Plan of Care: Orders Procedure Date/time Status Heart Healthy Diet 09/08 B Active Heart Healthy Diet 09/07 D Complete Patient Data 09/[address] in observation 09/07 222 Active Vital Signs 09/07 222 Active Code Status 09/[address] ABD & PELVIS W IV CONTRAST 09/07 2155 Active FingerStick- Glucose 09/07 1914 Active Add-on Test (ER Only) 09/07 1841 Active TROPONIN LEVEL 09/07 1620 Complete EKG 09/07 1620 Active Add-on Test (ER Only) 09/07 1505 Active Add-on Test (ER Only) 09/07 1335 Active Add-on Test (ER Only) 09/07 1324 Active TROPONIN LEVEL 09/07 1220 Complete TRIGLYCERIDES 09/07 1220 Complete ETHANOL 09/07 1220 Complete AMYLASE 09/07 1220 Complete Telemetry/Water And Fire Technician 09/07 1208 Active URINE 09/07 1208 Complete URINE DRUG SCREEN FOR ER ONLY 09/07 1208 Complete URINALYSIS 09/07 1208 Complete PARTIAL THROMBOPLASTIN TIME 09/07 1208 Complete PROTHROMBIN TIME 09/07 1208 Complete LIPASE 09/07 1208 Complete COMPREHENSIVE METABOLIC PANEL 09/07 1208 Complete CHOLESTEROL 09/07 1208 Complete CBC WITHOUT DIFFERENTIAL 09/07 1208 Complete EKG 09/07 1130 Active Laboratory Tests 09/07/17 1655: Troponin I < 0.01 09/07/17 1220: Serum Alcohol < 10.0 09/07/17 1220: Anion Gap 12, Estimated GFR > 60, BUN/Creatinine Ratio 21.7, Glucose 446 H, Calcium 9.6, Total Bilirubin 0.7, AST 13 L, ALT 15, Alkaline Phosphatase 191 H , Troponin I < 0.01, Total Protein 7.0, Albumin 3.9, Globulin 3.1, Albumin/ Globulin Ratio 1.3, Triglycerides 280 H, Cholesterol 249 H, Amylase 138 H, Lipase 931 H, PT 10.6, INR 0.97, APTT 27, CBC w Diff NO MAN DIFF REQ, RBC 4.89, MCV 83.7, MCH 28.6, MCHC 34.2, RDW 12.6, MPV 8.3, Gran % 75.0, Lymphocytes % 16.5 L, Monocytes % 7.2, Eosinophils % 1.0, Basophils % 0.3, Absolute Granulocytes 5.9, Absolute Lymphocytes 1.3, Absolute Monocytes 0.6, Absolute Eosinophils 0.1, Absolute Basophils 0, Urine Opiates Screen < 100, Methadone Screen < 40, Barbiturate Screen < 60, Ur Phencyclidine Scrn < 6.00, Amphetamines Screen < 100, U Benzodiazepines Scrn < 85, Urine Cocaine Screen < 50, Urine Cannabis Screen < 5.00, Urine Color YEL, Urine Clarity CLEAR, Urine pH 6.5, Ur Specific [place] 1.010, Urine Protein TRACE H, Urine Ketones NEG, Urine Nitrite NEG, Urine Bilirubin NEG, Urine Urobilinogen 0.2, Ur Leukocyte Esterase NEG, Ur Microscopic SEDIMENT EXAMINED, Urine RBC RARE, Urine WBC RARE, Ur Epithelial Cells MOD H, Urine Hemoglobin NEG, Urine Glucose >=1000 H, Urine Test NEGATIVE Diagnostic Imaging: Viewed by Me: Radiology Read. Discussed w/RAD: Radiology Read. Radiology Impression: PRESENT AGE: 47 PATIENT ACCOUNT NO: [id number] : 71 LOCATION: [facility] ORDERING PHYSICIAN: Susan VAUGHN SERVICE DATE: EXAM TYPE: US - US-LIMITED ABDOMEN EXAMINATION: US ABDOMEN LIMITED CLINICAL INFORMATION: Assess for gallstones or pancreatitis. COMPARISON: None TECHNIQUE: Real-time imaging of the right upper quadrant abdominal viscera. FINDINGS: PANCREAS: Visualized portions of the pancreas are unremarkable, with the pancreatic body and tail are predominantly obscured secondary to bowel gas. No peripancreatic fluid collection demonstrated. LIVER: Normal. The liver demonstrates normal size, contour and echogenicity. No focal lesion or intrahepatic biliary duct dilatation. GALLBLADDER: Normal. The gallbladder is physiologically distended without evidence of stones, sludge, polyps, wall thickening or pericholecystic fluid. COMMON BILE DUCT: Normal in caliber measuring 0.4 cm in diameter. RIGHT KIDNEY: Normal. No hydronephrosis. No renal calculi or focal parenchymal lesions. The kidney measures 11.4 cm in maximum dimension. FREE FLUID: None. IMPRESSION: 1. No evidence of cholelithiasis or cholecystitis. 2. No biliary ductal dilatation. 3. The pancreas is largely obscured secondary to bowel gas, however visualized portions are unremarkable. DICTATED BY: Clemente Moreno MD DATE/TIME DICTATED:09/07/171526 SUPERVISOR ALUMINUM FABRICATION:RJ DATE/TIME TRANSCRIBED:09/07/171526 CONFIDENTIAL, DO NOT COPY WITHOUT APPROPRIATE AUTHORIZATION. <Electronically signed in Other Vendor System> SIGNED BY: Clemente Moreno MD 09/07/17 1532 Initial ED EKG: NSR Prior EKG: unchanged Comments: PERC NEGATIVE 09/07/2017 12:26:33 PM patient took aspirin this morning without relief in symptoms. Patient has pancreatitis, elevated lipase. She's had elevated lipase in the past. No history of drinking. No gallstones indicated with ultrasound. Triglyceride is elevated but not significantly. According to gastroenterology triglyceride induced finger tenderness is usually with triglyceride levels over 500. Patient will be admitted for chest pain and pancreatitis, observation for IV hydration, pain control. Patient agreeable. Discussed with Dr. Jacobo and he agrees with plan. Patient had little relief with multiple doses of IV morphine and nitroglycerin. (Susan Holguin) Departure Departure Time of Disposition: 2121 Disposition: STILL A PATIENT Condition: Stable Clinical Impression Primary Impression: Chest pain Qualifiers: Chest pain type: unspecified Qualified Code: R07.9 - Chest pain, unspecified Secondary Impressions: Elevated lipase Referrals: Christiano HALL,Volodymyr Love (PCP) Additional Instructions: Follow-up with gastroenterology regarding elevated lipase. Increase fluids. Stick with bland diet over the next several days. Take Percocet as prescribed for pain. Return for worsening symptoms or concerns. Departure Forms: Customer Survey General Discharge Information Prescriptions: Current Visit Scripts Oxycodone HCl/Acetaminophen (Percocet 5-325 MG Tablet) 1 TAB PO Q6HR PRN pain #10 TAB Observation Note Spoke With: Doroteo Larkin MD Physician Advisor Notified: JANN JACOBO DO Place Patient In: Non-ED OBS Care Area Rationale for Observation: My rational for observation is as follows . Patient requiring serial EKG, serial troponins. Patient requiring cardiology consultation. Telemetry monitoring. Discharge at this time is medically harmful. Rule out ACS. (Susan Holguin) PA/PHOTOCOMPOSING MACHINE OPERATOR Co-Sign Statement Statement: ED Attending supervision documentation- [x] I saw and evaluated the patient. I have also reviewed all the pertinent lab results and diagnostic results. I agree with the findings and the plan of care as documented in the PA's/PHOTOCOMPOSING MACHINE OPERATOR's documentation. [] I have reviewed the ED Record and agree with the PA's/PHOTOCOMPOSING MACHINE OPERATOR's documentation. [] Additions or exceptions (if any) to the PAs/PHOTOCOMPOSING MACHINE OPERATOR's note and plan are summarized below: [] 47-year-old female with multiple risk factors for coronary artery disease presents with ongoing left sided chest pain. EKG and troponin are unremarkable. She is however being placed in inpatient observation due to ongoing pain. Additional troponin will be obtained telemetry monitoring cardiology consultation IV narcotics were needed to control her pain.. (Jann Jacobo DO) Critical Care Note Critical Care Note Critical Care Time: 30-74 min (Twila VAUGHN,Ssuan)
[2017-09-07 12:48] LABS: ABSOLUTE BASOPHIL COUNT 0 /CUMM (0.0-0.2); ABSOLUTE EOSINOPHIL COUNT 0.1 /CUMM (0.0-0.7); ABSOLUTE GRANULOCYTE CT 5.9 /CUMM (1.4-6.5); ABSOLUTE LYMPH COUNT 1.3 /CUMM (1.2-3.4); ABSOLUTE MONOCYTE COUNT 0.6 /CUMM (0.10-0.60); BASOPHIL % 0.3 % (0.0-2.0); HEMATOCRIT 40.9 % (37-47); MEAN CORPUSCULAR HGB 28.6 PG (27.0-31.0); MEAN CORPUSCULAR HGB CONC 34.2 G/DL (33.0-37.0); MEAN CORPUSCULAR VOLUME 83.7 FL (81.0-99.0); MEAN PLATELET VOLUME 8.3 FL (7.4-10.4); PLATELET COUNT 301 /CUMM (130-400); RBC DISTRIBUTION WIDTH 12.6 % (11.5-14.5); RED BLOOD CELL CT 4.89 /CUMM (4.20-5.40); WHITE BLOOD CELL COUNT 7.9 /CUMM (4.8-10.8)
[2017-09-07 12:59] LABS: PT 10.6 SEC (9.4-12.5); PTT 27 SEC (25-37)
--- NOTE | 2017-09-07 13:06 | RADIOLOGY REPORT ---
EXAMINATION: XR CHEST CLINICAL INFORMATION: Chest pain. COMPARISON: Prior chest radiographs, most recently 05/06/2017. TECHNIQUE: 2 views of the chest were obtained. FINDINGS: No significant abnormality is noted involving the heart, lungs, mediastinum, bony thorax or soft tissues. IMPRESSION: Unremarkable examination.
--- NOTE | 2017-09-07 15:32 | ULTRASOUND REPORT ---
EXAMINATION: US ABDOMEN LIMITED CLINICAL INFORMATION: Assess for gallstones or pancreatitis. COMPARISON: None TECHNIQUE: Real-time imaging of the right upper quadrant abdominal viscera. FINDINGS: PANCREAS: Visualized portions of the pancreas are unremarkable, with the pancreatic body and tail are predominantly obscured secondary to bowel gas. No peripancreatic fluid collection demonstrated. LIVER: Normal. The liver demonstrates normal size, contour and echogenicity. No focal lesion or intrahepatic biliary duct dilatation. GALLBLADDER: Normal. The gallbladder is physiologically distended without evidence of stones, sludge, polyps, wall thickening or pericholecystic fluid. COMMON BILE DUCT: Normal in caliber measuring 0.4 cm in diameter. RIGHT KIDNEY: Normal. No hydronephrosis. No renal calculi or focal parenchymal lesions. The kidney measures 11.4 cm in maximum dimension. FREE FLUID: None. IMPRESSION: 1. No evidence of cholelithiasis or cholecystitis. 2. No biliary ductal dilatation. 3. The pancreas is largely obscured secondary to bowel gas, however visualized portions are unremarkable.
[2017-09-07] MEDS ORDERED: PERCOCET 5-3251 EACH PO (19:12)
--- NOTE | 2017-09-07 23:01 | History & Physical ---
Taye Goodrich MD 09/07/17 9480: General Information and HPI MD Statement: I have seen and personally examined MALORIE PHILLIP and documented this H&P. The patient is a 47 year old F who presented with a patient stated chief complaint of chest pain. Source of Information: patient, old records Exam Limitations: no limitations History of Present Illness: 47 year old female with PMH significant for DM and HTN presented for evaluation of acute onset left sided chest pain. She stated her chest pain began this morning immediately after waking around 8AM. She described her chest pain as constant, pressure like with poking pain, 10/10 in severity and radiating into her left shoulder and arm with associated numbness of the left handed. She is left hand dominant. She stated she was given tylenol in the ED with no relief and that morphine improved it to an 8/10 in severity. She had no relief with nitroglycerin. She states she has had this pain in the past but never with this severity or duration. She states it is worse with palpation to the left chest and use of the left arm, but not worsened with exertion or relieved by rest. She describes no association with eating or position. She does endorse some chest tightness and dyspnea but those are relieved by the use of albuterol. She states she was evaluated by Dr. Axel Best, a community planner around [place]. She stated she had a normal echocardiogram and nuclear stress test performed last month. Her review of systems is positive for nausea and feeling lightheaded. She denies fevers, chills, cough, abdominal pain, N/V/D or dysuria. In the ED, she had an elevated alk phos and lipase evaluated with RUQ ultrasound and CT of the abdomen and pelvis. She was given nitroglycerin, morphine, and normal saline. Allergies/Medications Allergies: Coded Allergies: adhesive (Intermediate, RASH CLEAR/PAPER TAPE 05/02/17) celecoxib (From Celebrex) (Intermediate, RASH 05/02/17) escitalopram (From Lexapro) (Intermediate, RASH 05/02/17) triamcinolone (Intermediate, RASH 05/02/17) NSAIDS (Non-Steroidal Anti-Inflamma (ULCER 05/02/17) latex (RASH 05/02/17) Home Med list Albuterol Sulfate (Proair Hfa) 90 MCG HFA.AER.AD 2 PUF INH Q4-6 PRN PRN SHORTNESS OF BREATH (Reported) Aspirin (Ecotrin*) 81 MG TABLET.DR 1 TAB PO DAILY HEART/BLOOD (Reported) Cyclobenzaprine HCl 10 MG TABLET 1 TAB PO TID muscle spasms Hydrochlorothiazide 12.5 MG TABLET 1 TAB PO DAILY WATER PILL (Reported) Insulin Lispro (Humalog Kwikpen U-100) 100 UNIT/ML INSULN.PEN 8 UNITS SC QPM DM (Reported) Insulin-Lantus (Lantus) 100 UNIT/ML VIAL 50 UNITS SC QPM DM (Reported) Loperamide HCl (Loperamide) 2 MG TABLET 1 TAB PO DAILY PRN DIARRHEA Losartan Potassium (Cozaar) 50 MG TABLET 1 TAB PO DAILY BP (Reported) Meloxicam (Mobic) 15 MG TABLET 1 TAB PO DAILY PRN pain Ondansetron (Zofran Odt) 4 MG TAB.RAPDIS 1 TAB SL TID NAUSEA Oxycodone HCl/Acetaminophen (Percocet 5-325 MG Tablet) 5 MG-325 MG TABLET 1-2 TAB PO BID pain Oxycodone HCl/Acetaminophen (Percocet 5-325 MG Tablet) 5 MG-325 MG TABLET 1 TAB PO Q6HR PRN pain Pantoprazole Sodium 40 MG TABLET.DR 1 TAB PO DAILY GI (Reported) Pravastatin Sodium 20 MG TABLET 1 TAB PO DAILY CHOLESTEROL (Reported) Sertraline HCl 100 MG TABLET 1 TAB PO DAILY MENTAL HEALTH (Reported) Sitagliptin Phos/Metformin HCl (Janumet 50-1,000 MG Tablet) 50 MG-1,000 MG TABLET 1 TAB PO BID DM (Reported) Trazodone HCl 100 MG TABLET 1 TAB PO QPM SLEEP (Reported) Compliance With Home Meds: GOOD Past History Travel History Traveled to [place] past 21 day No Medical History Neurological: migraine EENT: NONE Cardiovascular: hypertension, hyperlipidemia Respiratory: NONE Gastrointestinal: ULCER Hepatic: NONE Renal: NONE Musculoskeletal: ARTHRITIS Psychiatric: anxiety, depression Endocrine: diabetes Blood Disorders: NONE Cancer(s): NONE ESL INSTRUCTIONAL ASSISTANT/Reproductive: NONE Surgical History Surgical History: hysterectomy, EXTRA BONE REMOVED FROM FOOT Past Family/Social History Family History Relations & Conditions if any MOTHER FH: heart disease Functional Ability ADLs Independent: dressing, eating, toileting, bathing. Review of Systems Review of Systems Constitutional: Reports: no symptoms. EENTM: Reports: no symptoms. Cardiovascular: Reports: chest pain. Respiratory: Reports: sputum production. GI: Reports: nausea. Genitourinary: Reports: no symptoms. Musculoskeletal: Reports: back pain. Skin: Reports: no symptoms. Neurological/Psychological: Reports: no symptoms. Hematologic/Endocrine: Reports: no symptoms. Immunologic/Allergic: Reports: no symptoms. All Other Systems: Reviewed and Negative Exam & Diagnostic Data Last 24 Hrs of Vital Signs/I&O Vital Signs Date Time Temp Pulse Resp B/P B/P Pulse O2 O2 Flow FiO2 Mean Ox Delivery Rate 09/08 0115 98.8 77 18 128/92 97 Room Air 09/07 2137 98.2 70 18 147/80 99 Room Air 09/07 1924 97.5 81 20 147/75 96 09/07 1509 97.5 88 18 134/75 97 Room Air Room Air 09/07 1136 97.9 95 18 143/72 97 Room Air Room Air Intake & Output 09/08 0800 09/08 0000 09/07 1600 Intake Total 1000 Output Total Balance 1000 Intake, IV 1000 Patient 83.461 kg 83.461 kg Weight Weight Reported by Patient Measurement Method Physical Exam General Appearance Alert, Oriented X3, Cooperative, No Acute Distress Cardiovascular Regular Rate, Normal S1, Normal S2, No Murmurs, reproducible left sided chest pain on physical exam Lungs Clear to Auscultation, Normal Air Movement Abdomen Normal Bowel Sounds, Soft, No Tenderness, No Masses Extremities No Clubbing, No Cyanosis, No Edema, Normal Pulses Diagnostic Data EKG Results normal sinus rhythm, no ischemic changes CXR Results No significant abnormality is noted involving the heart, lungs, mediastinum, bony thorax or soft tissues. Other Results CT A/P No CT evidence of acute pancreatitis. A 0.7 cm low-attenuation in the pancreatic head is stable since previous study of 12/27/2016 and may represent a pancreatic cyst versus cystic neoplasm. Consider follow-up MRI/MRCP in 6 months. RUQ U/S . No evidence of cholelithiasis or cholecystitis. 2. No biliary ductal dilatation. 3. The pancreas is largely obscured secondary to bowel gas, however visualized portions are unremarkable. Assessment/Plan Assessment: 47 year old female with PMH of DM and HTN presents with acute left sided chest pain. Atypical chest pain: Presentation of ischemia may be atypical in diabetic female Chest pain reproducible on physical exam, consistent with musculoskeletal pain Negative recent workup for myocardial ischemia with Dr. Best according to the patient Check serial troponins and EKGs Cardiology consultation Obtain records from Dr. Best Continue aspirin and statin Start low dose beta damian Consider CT cervical spine for radicular pain and numbness of left hand Elevated lipase: CT Abdomen pelvis showed pancreatic cyst vs malignancy Consider MRI Outpatient GI referral No abdominal pain, or pancreatic inflammation on imaging, denies EtOH, triglycerides/cholesterol elevated 250-280 DM: Accuchecks TIDAC/HS Levemir 20units BID Novolog insulin sliding scale Check hemoglobin a1c Diabetic diet HTN: Continue HCTZ and losartan Diabetic diet DVT ppx-lovenox 40mg subcutaneous daily Full code As Ranked By This Provider Problem List: 1. Chest pain Qualifiers Chest pain type: unspecified Qualified Code: R07.9 - Chest pain, unspecified 2. Hyperglycemia 3. Elevated lipase Core Measures/Misc (02/28) Acute Coronary Syndrome ACS Diagnosis: No Congestive Heart Failure Congestive Heart Failure Diagnosis No Cerebrovascular Accident CVA/TIA Diagnosis: No VTE (View Protocol) VTE Risk Factors Age>40 No Mechanical VTE Prophylaxis d/t N/A MechProphylax Ordered No VTE Pharm Prophylaxis d/t NA PharmProphylax ordered Sepsis (View protocol) Sepsis Present: No Suleman Reyes 09/08/17 0434: Resident Review Statement Resident Statement: examined this patient, discussed with it intern, agreed with it intern, discussed with family, reviewed EMR data (avail), discussed with nursing , discussed with case mgmt, reviewed images, amended to note Other Findings: This is a 47-year-old female with past medical history significant for COPD, former smoker, hyperlipidemia, chronic back pain, knee pain, neck pain, type 2 diabetes mellitus, hypertension, GERD, depression, insomnia, migraine headaches, osteoarthritis presented to the emergency room with chief complaint of left- sided chest pain since yesterday. Patient reports that she had an episode of left-sided chest pain, around 6 PM last evening, subsided by its own. However she reports that she had an episode of chest pain again around 8 AM, left-sided, 10 out of 10, radiating to elbow associated with left hand numbness, sharp, no aggravating, relieving factors. No improvement with the Tylenol. She came to the ER for further evaluation. Patient reports that she has history of chest pains in the past, followed up with community planner at [facility], outpatient echo, stress test were normal. On review of systems patient reports nausea, left arm pain associated with left hand numbness. She denied any fever, chills, productive cough, palpitations, short of breath, headache numbness, tingling sensation, gait changes, vision abnormality or sleep changes. She quit smoking one year ago, denies alcohol abuse, illicit drug abuse. Off note patient was seen [facility] for back pain, neck pain, knee pain. Also she is getting Percocet every time when she gets discharged from ER. ------ Vitals afebrile, heart rate 85, respiratory rate 18, blood pressure 147/80, saturating at 99 on room air Exam HEENT within normal limits, no JVD, S1-S2 normal, chest tenderness on palpation, clear to auscultate, no epigastric tenderness, soft, nondistended abdomen, lower extremity no edema. Labs CBC normal limit BMP normal limit Coags normal Urine analysis and U tox normal Troponin negative EKG sinus rhythm, rate 93, no acute ST-T wave changes cxr unremarkable Abdominal ultrasound 1. No evidence of cholelithiasis or cholecystitis. 2. No biliary ductal dilatation. 3. The pancreas is largely obscured secondary to bowel gas, however visualized portions are unremarkable. abdomen ct 1. No CT evidence of acute pancreatitis. A 0.7 cm low-attenuation in the pancreatic head is stable since previous study of 12/27/2016 and may represent a pancreatic cyst versus cystic neoplasm. Consider follow-up MRI/MRCP in 6 months. --- Atypical chest pain rule out ACS patient presented with ongoing chest pain, on and off since last evening. Looks like atypical, reproducible on chest exam, radiating to arm, hand, no nausea, vomiting, sweating, diaphoresis, no aggravating or relieving factors. she has similar chest pains in the past, outpatient workup was negative for stress test and echocardiogram. * However given her risk factors diabetes, hypertension, smoker, morbidly obese, hyperlipidemia, we'll place her under observation in telemetry floor to rule out ACS * Place under observation status * Continuous telemetry monitoring * Serial troponin and EKG * Cardiology consult in a.m. * Get outpatient records from her cardiology office * Follow cardiology recommendations in am * Continue baby aspirin 81 daily * Continue pravastatin 20 daily 2. Elevated amylase, lipase Patient presented with atypical presentation for chest pain. Reports nausea, denies any abdominal pain or discomfort. She was found to have elevated amylase and lipase. off Note she has abnormal amylase and lipase in the past, never worked up. Denies any alcohol abuse, abnormal lipid profile, history of gallstones in the past. Abdominal ultrasound negative for cholelithiasis, cholecystitis, gallbladder changes, acute pancreatitis. CAT scan abdomen was done which showed No CT evidence of acute pancreatitis. A 0.7 cm low-attenuation in thepancreatic head is stable since previous study of 12/27/2016 and may represent a pancreatic cyst versus cystic neoplasm. * Consider follow-up MRI/MRCP in 6 months. * Output Patient GI referral * triGlycerides 280, cholesterol 249, elevated alkaline phosphatase 191. Diabetes mellitus Hold oral medications She takes Lantus 50 at bedtime. We'll continue Lantus 20 a.m. and 20 p.m. NovoLog sliding scale COPD, former smoker continue TRC nebs Hyperlipidemia continue pravastatin 20 daily and aspirin 81 daily Hypertension continue hydrochlorothiazide 12.5 and losartan 50 daily Chronic pain pain pathway GERD continue omeprazole 40 daily Depression continue sertraline 100daily Insomnia continue trazodone 100 mg at bedtime Full code DVT prophylaxis subcutaneous Lovenox Regular diet Pain pathway Doroteo Larkin 09/08/17 0516: Attending MD Review Statement Attending Statement Attending MD Statement: examined this patient, discuss w/resident/PA/FLOOR POLISHER, agreed w/resident/PA/FLOOR POLISHER, discussed with family, reviewed images, amended to note Attending Assessment/Plan: CC: Chest pain PMH: DM, HTN, chronic right lower extremity pain, ?COPD, ex-smoker Patient came to ER for left-sided chest pain started at 8:30 in the morning, after she woke up and was at resting position on academic coach. Patient states that pain is pressure-like and sharp shooting, radiating to left shoulder and left arm, left side of neck and associated with tingling in left hand. Pain is 10 over 10 in intensity, tried to take Tylenol without much relief. Patient denies any shortness of breath, diaphoresis, vomiting. Patient endorses mild nausea. Patient was evaluated outpatient with stress test and echocardiogram 1 month back which was normal. Vitals: Afebrile, pulse 88, RR 18, blood pressure 134/75, saturating well on room air. On exam: A O 3, cooperative, no acute distress, neck supple, JVD normal, no lymphadenopathy, mucosa moist, no focal neurological deficit, no dependent edema , no obvious skin rashes or inflammation CVS: S1-S2, RRR, chest pain reproducible on palpation on left side. RS: Clear to auscultate bilaterally. Abdomen: Soft, NT, ND, bowel sounds present. Peripheral pulses perfusion normal CXR: Unremarkable examination. Right upper quadrant ultrasound: 1. No evidence of cholelithiasis or cholecystitis. 2. No biliary ductal dilatation. 3. The pancreas is largely obscured secondary to bowel gas, however visualized portions are unremarkable. CT abdomen pelvis with IV contrast: 1. No CT evidence of acute pancreatitis. A 0.7 cm low-attenuation in the pancreatic head is stable since previous study of 12/27/2016 and may represent a pancreatic cyst versus cystic neoplasm. Consider follow-up MRI/MRCP in 6 months. 2. No acute abnormality. Assessment and plan 47-year-old female with past medical history significant for DM, HTN, COPD, chronic pain and right lower extremity presented in ER for left-sided chest pain started this morning after waking up at rest. Pain 10 over 10 intensity, sharp and pressure-like, radiating to left shoulder, left arm and left side of the neck and arm numbness. Associated with mild nausea but no vomiting diaphoresis or palpitations. Her pain appears to be atypical. Troponin and EKG negative. Patient was recently investigated with echocardiogram and stress test one month back which was unremarkable. Given her comorbidities a series should be ruled out with pain appears more radiculopathy in nature, would benefit from CT neck with contrast outpatient. Patient's labs unremarkable except hyperglycemia with glucose of 446 and elevated lipase of 931. Patient had increased lipase in the past but not this high. Given her atypical chest pain, CT abdomen with IV contrast was obtained to rule out any pancreatitis. Imaging ruled out pancreatitis but she is found to have small cyst which is not changed in size since 12/27/2016. This needs outpatient follow-up. Of note patient has been in ER several times in 2017 for multiple different problems. CT SECURITY REP records were checked and patient received small quantities of narcotics every time in ER. + Atypical chest pain, rule out ACS + History of DM, HTN, chronic right lower extremity pain, ?COPD - Place in observation on telemetry - Continuous telemetry monitoring - Serial troponin and EKGs - 2-D echo in a.m. if significant increase in troponin - Cardiology consult in a.m. - Continue aspirin - Continue heparin drip - Obtain records for her recent stress test done outpatient - Local lidocaine patch - Adequate pain control - MRI outpatient in 6 months for pancreatic cyst - Consider outpatient CT neck to rule out any radiculopathy. - DVT prophylaxis
--- NOTE | 2017-09-07 23:08 | CT SCAN REPORT ---
EXAMINATION: CT ABDOMEN AND PELVIS WITH CONTRAST CLINICAL INFORMATION: Elevated lipase. Rule out pancreatitis. COMPARISON: Abdominal ultrasound of 09/07/2017. CT abdomen and pelvis of 12/27/2016. TECHNIQUE: Multidetector volumetric imaging was performed of the abdomen and pelvis following IV administration of 90 mL of Optiray 320 intravenous contrast. Sagittal and coronal reformatted images were obtained on the technologist's workstation. DLP: 500.99 mGy-cm FINDINGS: LUNG BASES: The visualized lung bases are unremarkable. LIVER, GALLBLADDER, AND BILIARY TREE: The liver is normal in size, shape, and attenuation. No focal hepatic lesion or biliary ductal dilatation is present. The gallbladder is unremarkable with no evidence of radiopaque gallstones, gallbladder wall thickening, or obvious pericholecystic inflammatory changes. PANCREAS: A 0.7 cm low-attenuation in the pancreatic head anteriorly (series 3 image 241/856) is stable since previous study of 12/27/2016. The pancreas is otherwise unremarkable. No evidence of peripancreatic stranding or fluid. No pancreatic parenchymal calcification or ductal dilatation. SPLEEN: Unremarkable. A 1.5 cm splenule is noted at the inferior tip of the spleen. ADRENAL GLANDS: Unremarkable. KIDNEYS AND URETERS: The kidneys are normal in size, shape, and attenuation. Multifocal areas of mild parenchymal scarring is noted bilaterally. No hydronephrosis, hydroureter, or calculi seen. No perinephric stranding. BLADDER: Underdistended, however, unremarkable. GASTROINTESTINAL TRACT: The small and large bowel are unremarkable. The appendix is unremarkable. The stomach is unremarkable. Small duodenal diverticula are noted at the junction of the descending and transverse portion of the duodenum. ABDOMINAL WALL: No significant hernia is appreciated. LYMPH NODES: Normal. VASCULAR: Unremarkable. PELVIC VISCERA: The uterus is surgically absent. No adnexal mass. Air in the vagina is likely external in origin. OSSEOUS STRUCTURES: No acute or suspicious osseous abnormality. Sclerosis along the iliac side of bilateral sacroiliac joints is a stable finding representing osteitis condensans ilii. Facet arthropathy is noted in the lower lumbar spine. IMPRESSION: 1. No CT evidence of acute pancreatitis. A 0.7 cm low-attenuation in the pancreatic head is stable since previous study of 12/27/2016 and may represent a pancreatic cyst versus cystic neoplasm. Consider follow-up MRI/MRCP in 6 months. 2. No acute abnormality.
[2017-09-08 01:15] VITALS: BP 128/92
[2017-09-08 07:46] VITALS: BP 132/84
[2017-09-08 08:24] LABS: ABSOLUTE BASOPHIL COUNT 0 /CUMM (0.0-0.2); ABSOLUTE EOSINOPHIL COUNT 0.1 /CUMM (0.0-0.7); ABSOLUTE GRANULOCYTE CT 4.3 /CUMM (1.4-6.5); ABSOLUTE MONOCYTE COUNT 0.5 /CUMM (0.10-0.60); BASOPHIL % 0.5 % (0.0-2.0); GRANULOCYTE % 61.1 % (42.2-75.2); MEAN CORPUSCULAR HGB 28.6 PG (27.0-31.0); MEAN CORPUSCULAR HGB CONC 33.9 G/DL (33.0-37.0); MEAN CORPUSCULAR VOLUME 84.5 FL (81.0-99.0); MEAN PLATELET VOLUME 8.2 FL (7.4-10.4); PLATELET COUNT 304 /CUMM (130-400); RBC DISTRIBUTION WIDTH 12.9 % (11.5-14.5)
[2017-09-08 08:41] VITALS: BP 132/84
--- NOTE | 2017-09-08 09:53 | PN- Housestaff ---
Sj HALL,[facility] 09/08/17 0952: Subjective Follow-up For: Chest pain Subjective: No acute events overnight. Pt continues to have slight chest pain. States she has a headache this AM. Review of Systems Constitutional: Reports: see HPI. Objective Last 24 Hrs of Vital Signs/I&O Vital Signs Date Time Temp Pulse Resp B/P B/P Pulse O2 O2 Flow FiO2 Mean Ox Delivery Rate 09/08 0845 Room Air 09/08 0841 75 132/84 09/08 0746 98.4 75 18 132/84 95 Room Air 09/08 0115 98.8 77 18 128/92 97 Room Air 09/07 2137 98.2 70 18 147/80 99 Room Air Intake & Output 09/08 1600 09/08 0800 09/08 0000 Intake Total 477 231 7699 Output Total Balance 640 692 7218 Intake, IV 1000 Intake, Oral 650 240 Patient 184 lb Weight Physical Exam General Appearance: Alert, Oriented X3, Cooperative, No Acute Distress Cardiovascular: Normal S1, Normal S2, tachycardia Lungs: Clear to Auscultation, Normal Air Movement Abdomen: Normal Bowel Sounds, Soft, No Tenderness Vascular: 2+ radial pulses Current Medications: Current Medications Sig/Massimo Start time Last Medication Dose Route Stop Time Status Admin Acetaminophen 1,000 MG ONCE ONE 09/08 1100 DC 09/08 IV 09/08 1101 1055 Acetaminophen 650 MG Q6P PRN 09/07 2300 DCD PO Albuterol Sulfate 2 PUF Q4-6 PRN PRN 09/07 2300 DCD INH Aspirin Buffered 81 MG DAILY 09/08 1000 DCD 09/08 PO 0841 Enoxaparin Sodium 40 MG DAILY 09/08 1000 DCD 09/08 SC 0845 Hydrochlorothiazide 12.5 MG DAILY 09/08 1000 DCD 09/08 PO 0841 Insulin Aspart 0 TIDAC 09/07 2300 DCD 09/08 SC 1149 Insulin Detemir 30 UNITS AT BEDTIME 09/08 2200 DC SC Insulin Detemir 20 UNITS AT BEDTIME 09/08 2200 DCD SC Insulin Detemir 20 UNITS 1000 09/08 1000 DCD 09/08 SC 0840 Insulin Detemir 50 UNITS AT BEDTIME 09/07 2300 DC 09/08 SC 0012 Lidocaine 1 PAT DAILY 09/08 1000 CAN EXT Losartan Potassium 50 MG DAILY 09/08 1000 DCD 09/08 PO 0841 Omeprazole 40 MG DAILY AC 09/08 0700 DCD 09/08 PO 0700 Pravastatin Sodium 20 MG DAILY 09/08 1000 DCD 09/08 PO 0841 Sertraline HCl 100 MG DAILY 09/08 1000 DCD 09/08 PO 0841 Trazodone HCl 100 MG QPM 09/08 2200 DCD PO Trazodone HCl 100 MG .STK-MED ONE 09/08 0049 DC PO 09/08 0050 Trazodone HCl 100 MG ONE TIME ONE 09/08 0030 DC PO 09/08 0031 Last 24 Hrs of Lab/Abram Results Last 24 Hrs of Labs/Mics: Laboratory Tests 09/08/17 0609: Anion Gap 12, Estimated GFR > 60, BUN/Creatinine Ratio 20.0, CBC w Diff NO MAN DIFF REQ, RBC 4.50, MCV 84.5, MCH 28.6, MCHC 33.9, RDW 12.9, MPV 8.2, Gran % 61.1, Lymphocytes % 28.7, Monocytes % 7.7, Eosinophils % 2.0, Basophils % 0.5, Absolute Granulocytes 4.3, Absolute Lymphocytes 2.0, Absolute Monocytes 0.5, Absolute Eosinophils 0.1, Absolute Basophils 0 09/07/17 2330: Troponin I < 0.01 Assessment/Plan Assessment: 47 year old female with PMH of DM and HTN presents with acute left sided chest pain. Atypical chest pain: Chest pain reproducible on physical exam, consistent with musculoskeletal pain Negative recent workup for myocardial ischemia with Dr. Best according to the patient Serial trops and EKG negative for ACS Cleared by cardiology Advised to continue her home medications including statin Advised to f/u with her nail welter and Dr. Kearney Persistent elevated lipase in the setting of ?cancer of the pancreatic head: Labs reveale elevated alp, triglycerides, cholesterol, lipase, and amylase CT Abdomen pelvis revealed 0.7cm stable low-attenuation in pancreatic head Patient advised to follow up with PCP for MRI of abd Diabetes continued levemir BID, novolog sliding scale HTN Continue HCTZ and losartan Mental health Cont sertarline, trazodone GERD cont PPI DVT ppx-lovenox 40mg subcutaneous daily Full code Problem List: 1. Chest pain Pain Ratin Pain Location: L chest, shoulder Pain Goal: Pain 7 or less Pain Plan: pain pathway Tomorrow's Labs & Rationales: none Marti,Kanwardeep 09/08/17 1522: Attending MD Review Statement Attending Statement Attending MD Statement: examined this patient, discuss w/resident/PA/DENTAL LABORATORY SUPERVISOR, agreed w/resident/PA/DENTAL LABORATORY SUPERVISOR, discussed with family, reviewed EMR data (avail), discussed with nursing, discussed with case mgmt Attending Assessment/Plan: Pt being dced home in stable condition. Pt has chest pain but had a stress test done recently at her nail welter office Dr Jann best one month ago which was normal. Pt cont to smoke and was counselled on quitting. pt has h/o PUD and was told to cut down on her coffee intake and quit smoking. cont ppi at discharge. d/w pt and pts sister at bedside the care plan.
--- NOTE | 2017-09-08 11:09 | Cons- Cardiology ---
General Information and HPI Consulting Request Date of Consult: 09/08/17 Requested By: Silas Marti MD Reason for Consult: Chest pain Source of Information: patient, old records Exam Limitations: no limitations History of Present Illness: The patient is a 47-year-old female with a history of diabetes and hypertension. 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 This is described as a severe left anterior chest pain radiating into her left shoulder and arm. This was reproducible by palpation according to the ER PA who I spoke to. She is still having some residual pain today. The patient because of her risk factors and some other chest pains has had a recent cardiac workup including stress test and echocardiogram which is said to be negative. She does not describe exertional chest pain or shortness of breath. She is a light smoker. She has elevated cholesterol. She says she was on lipid-lowering medications in the past but apparently not now. Her current cholesterol is 249, triglycerides are 280 and amylase and lipase are also elevated. Her glucose was very elevated on presentation at 446. Allergies/Medications Allergies: Coded Allergies: adhesive (Intermediate, RASH CLEAR/PAPER TAPE 05/02/17) celecoxib (From Celebrex) (Intermediate, RASH 05/02/17) escitalopram (From Lexapro) (Intermediate, RASH 05/02/17) triamcinolone (Intermediate, RASH 05/02/17) NSAIDS (Non-Steroidal Anti-Inflamma (ULCER 05/02/17) latex (RASH 05/02/17) Home Med List: Albuterol Sulfate (Proair Hfa) 90 MCG HFA.AER.AD 2 PUF INH Q4-6 PRN PRN SHORTNESS OF BREATH (Reported) Aspirin (Ecotrin*) 81 MG TABLET.DR 1 TAB PO DAILY HEART/BLOOD (Reported) Cyclobenzaprine HCl 10 MG TABLET 1 TAB PO TID muscle spasms Hydrochlorothiazide 12.5 MG TABLET 1 TAB PO DAILY WATER PILL (Reported) Insulin Lispro (Humalog Kwikpen U-100) 100 UNIT/ML INSULN.PEN 8 UNITS SC QPM DM (Reported) Insulin-Lantus (Lantus) 100 UNIT/ML VIAL 50 UNITS SC QPM DM (Reported) Loperamide HCl (Loperamide) 2 MG TABLET 1 TAB PO DAILY PRN DIARRHEA Losartan Potassium (Cozaar) 50 MG TABLET 1 TAB PO DAILY BP (Reported) Meloxicam (Mobic) 15 MG TABLET 1 TAB PO DAILY PRN pain Ondansetron (Zofran Odt) 4 MG TAB.RAPDIS 1 TAB SL TID NAUSEA Pantoprazole Sodium 40 MG TABLET.DR 1 TAB PO DAILY GI (Reported) Pravastatin Sodium 20 MG TABLET 1 TAB PO DAILY CHOLESTEROL (Reported) Sertraline HCl 100 MG TABLET 1 TAB PO DAILY MENTAL HEALTH (Reported) Sitagliptin Phos/Metformin HCl (Janumet 50-1,000 MG Tablet) 50 MG-1,000 MG TABLET 1 TAB PO BID DM (Reported) Trazodone HCl 100 MG TABLET 1 TAB PO QPM SLEEP (Reported) Current Medications: Current Medications Sig/Massimo Start time Last Medication Dose Route Stop Time Status Admin Acetaminophen 1,000 MG ONCE ONE 09/08 1100 DC 09/08 IV 09/08 1101 1055 Acetaminophen 650 MG Q6P PRN 09/07 2300 AC PO Acetaminophen 0 .STK-MED ONE 09/07 1330 DC PO Acetaminophen 650 MG ONCE ONE 09/07 1230 DC 09/07 PO 09/07 1231 1300 Albuterol Sulfate 2 PUF Q4-6 PRN PRN 09/07 2300 AC INH Aspirin Buffered 81 MG DAILY 09/08 1000 AC 09/08 PO 0841 Enoxaparin Sodium 40 MG DAILY 09/08 1000 AC 09/08 SC 0845 Hydrochlorothiazide 12.5 MG DAILY 09/08 1000 AC 09/08 PO 0841 Insulin Aspart 0 TIDAC 09/07 2300 AC 09/08 SC 0840 Insulin Detemir 30 UNITS AT BEDTIME 09/08 2200 DC SC Insulin Detemir 20 UNITS AT BEDTIME 09/08 2200 AC SC Insulin Detemir 20 UNITS 1000 09/08 1000 AC 09/08 SC 0840 Insulin Detemir 50 UNITS AT BEDTIME 09/07 2300 DC 09/08 SC 0012 Lidocaine 1 PAT DAILY 09/08 1000 CAN EXT Losartan Potassium 50 MG DAILY 09/08 1000 AC 09/08 PO 0841 Morphine Sulfate 0 .STK-MED ONE 09/07 1957 DC .ROUTE Morphine Sulfate 2 MG ONCE ONE 09/07 194 DC 09/07 IV 09/07 Morphine Sulfate 0 .STK-MED ONE 09/07 1819 DC .ROUTE Morphine Sulfate 4 MG ONCE ONE 09/07 1615 DC 09/07 IV 09/07 1616 1800 Nitroglycerin 0.4 MG ONCE ONE 09/07 194 DC 09/07 SL 09/07 194 194 Omeprazole 40 MG DAILY AC 09/08 0700 AC 09/08 PO 0700 Pravastatin Sodium 20 MG DAILY 09/08 1000 AC 09/08 PO 0841 Sertraline HCl 100 MG DAILY 09/08 1000 AC 09/08 PO 0841 Sodium Chloride 1,000 ML BOLUS ONE 09/07 1315 DC 09/07 IV 09/07 1414 1430 Trazodone HCl 100 MG QPM 09/08 2200 AC PO Trazodone HCl 100 MG .STK-MED ONE 09/08 0049 DC PO 09/08 0050 Trazodone HCl 100 MG ONE TIME ONE 09/08 0030 DC PO 09/08 0031 Review of Systems Review of Systems: She has no other complaints in the review of systems at this time Past History Travel History Traveled to [place] past 21 day No Medical History Blood Transfusion Hx: No Neurological: migraine EENT: NONE Cardiovascular: hypertension, hyperlipidemia Respiratory: NONE Gastrointestinal: ULCER Hepatic: NONE Renal: NONE Musculoskeletal: ARTHRITIS Psychiatric: anxiety, depression Endocrine: diabetes Blood Disorders: NONE Cancer(s): NONE 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 Exam & Diagnostic Data Vital Signs and I&O Vital Signs Date Time Temp Pulse Resp B/P B/P Pulse O2 O2 Flow FiO2 Mean Ox Delivery Rate 09/08 0845 Room Air 09/08 0841 75 132/84 09/08 0746 98.4 75 18 132/84 95 Room Air 09/08 0115 98.8 77 18 128/92 97 Room Air 09/07 2137 98.2 70 18 147/80 99 Room Air 09/07 1924 97.5 81 20 147/75 96 09/07 1509 97.5 88 18 134/75 97 Room Air Room Air 09/07 1136 97.9 95 18 143/72 97 Room Air Room Air Intake & Output 09/08 1600 09/08 0800 09/08 0000 09/07 1600 09/07 0800 09/07 0000 Intake Total 240 1000 Output Total Balance 240 1000 Intake, IV 1000 Intake, Oral 240 Patient 184 lb 184 lb Weight Weight Reported by Patient Measurement Method Physical Exam: This is a middle-aged obese female in no acute distress. She is still describing some left sided chest pain which was exacerbated by light palpation. HEENT exam is normal Chest is clear Heart regular rhythm no murmurs Extremities no edema pulses are present Labs/Abram Results: Laboratory Tests 09/08 09/07 09/07 09/07 0609 2330 1655 1220 Chemistry Sodium (137 - 145 mmol/L) 136 L Potassium (3.5 - 5.1 mmol/L) 3.5 Chloride (98 - 107 mmol/L) 98 Carbon Dioxide (22 - 30 mmol/L) 26 Anion Gap (5 - 16) 12 BUN (7 - 17 mg/dL) 12 Creatinine (0.5 - 1.0 mg/dL) 0.6 Estimated GFR (>60 ml/min) > 60 BUN/Creatinine Ratio (7 - 25 %) 20.0 Troponin I (< 0.11 ng/ml) < 0.01 < 0.01 Hematology CBC w Diff NO MAN DIFF REQ WBC (4.8 - 10.8 /CUMM) 7.0 RBC (4.20 - 5.40 /CUMM) 4.50 Hgb (12.0 - 16.0 G/DL) 12.9 Hct (37 - 47 %) 38.0 MCV (81.0 - 99.0 FL) 84.5 MCH (27.0 - 31.0 PG) 28.6 MCHC (33.0 - 37.0 G/DL) 33.9 RDW (11.5 - 14.5 %) 12.9 Plt Count (130 - 400 /CUMM) 304 MPV (7.4 - 10.4 FL) 8.2 Gran % (42.2 - 75.2 %) 61.1 Lymphocytes % (20.5 - 51.1 %) 28.7 Monocytes % (1.7 - 9.3 %) 7.7 Eosinophils % (0 - 5 %) 2.0 Basophils % (0.0 - 2.0 %) 0.5 Absolute Granulocytes (1.4 - 6.5 /CUMM) 4.3 Absolute Lymphocytes (1.2 - 3.4 /CUMM) 2.0 Absolute Monocytes (0.10 - 0.60 /CUMM) 0.5 Absolute Eosinophils (0.0 - 0.7 /CUMM) 0.1 Absolute Basophils (0.0 - 0.2 /CUMM) 0 Toxicology Serum Alcohol (<10 MG/DL) < 10.0 09/07 1220 Chemistry Sodium (137 - 145 mmol/L) 132 L Potassium (3.5 - 5.1 mmol/L) 4.7 Chloride (98 - 107 mmol/L) 93 L Carbon Dioxide (22 - 30 mmol/L) 27 Anion Gap (5 - 16) 12 BUN (7 - 17 mg/dL) 13 Creatinine (0.5 - 1.0 mg/dL) 0.6 Estimated GFR (>60 ml/min) > 60 BUN/Creatinine Ratio (7 - 25 %) 21.7 Glucose (65 - 99 mg/dL) 446 H Calcium (8.4 - 10.2 mg/dL) 9.6 Total Bilirubin (0.2 - 1.3 mg/dL) 0.7 AST (14 - 36 U/L) 13 L ALT (9 - 52 U/L) 15 Alkaline Phosphatase (<127 U/L) 191 H Troponin I (< 0.11 ng/ml) < 0.01 Total Protein (6.3 - 8.2 g/dL) 7.0 Albumin (3.5 - 5.0 g/dL) 3.9 Globulin (1.9 - 4.2 gm/dL) 3.1 Albumin/Globulin Ratio (1.1 - 2.2 %) 1.3 Triglycerides (<150 mg/dL) 280 H Cholesterol (<200 MG/DL) 249 H Amylase (30 - 110 U/L) 138 H Lipase (23 - 300 U/L) 931 H Coagulation PT (9.4 - 12.5 SEC) 10.6 INR (0.90 - 1.19) 0.97 APTT (25 - 37 SEC) 27 Hematology CBC w Diff NO MAN DIFF REQ WBC (4.8 - 10.8 /CUMM) 7.9 RBC (4.20 - 5.40 /CUMM) 4.89 Hgb (12.0 - 16.0 G/DL) 14.0 Hct (37 - 47 %) 40.9 MCV (81.0 - 99.0 FL) 83.7 MCH (27.0 - 31.0 PG) 28.6 MCHC (33.0 - 37.0 G/DL) 34.2 RDW (11.5 - 14.5 %) 12.6 Plt Count (130 - 400 /CUMM) 301 MPV (7.4 - 10.4 FL) 8.3 Gran % (42.2 - 75.2 %) 75.0 Lymphocytes % (20.5 - 51.1 %) 16.5 L Monocytes % (1.7 - 9.3 %) 7.2 Eosinophils % (0 - 5 %) 1.0 Basophils % (0.0 - 2.0 %) 0.3 Absolute Granulocytes (1.4 - 6.5 /CUMM) 5.9 Absolute Lymphocytes (1.2 - 3.4 /CUMM) 1.3 Absolute Monocytes (0.10 - 0.60 /CUMM) 0.6 Absolute Eosinophils (0.0 - 0.7 /CUMM) 0.1 Absolute Basophils (0.0 - 0.2 /CUMM) 0 Toxicology Urine Opiates Screen (>2000 NG/ML) < 100 Methadone Screen (>300 NG/ML) < 40 Barbiturate Screen (>200 NG/ML) < 60 Ur Phencyclidine Scrn (>25 NG/ML) < 6.00 Amphetamines Screen (>1000 NG/ML) < 100 U Benzodiazepines Scrn (>200 NG/ML) < 85 Urine Cocaine Screen (>300 NG/ML) < 50 Urine Cannabis Screen (>50 NG/ML) < 5.00 Urines Urine Color (YEL,AMB,STR) YEL Urine Clarity (CLEAR) CLEAR Urine pH (5.0 - 8.0) 6.5 Ur Specific [place] (1.001 - 1.035) 1.010 Urine Protein (NEG,<30 MG/DL) TRACE H Urine Ketones (NEG) NEG Urine Nitrite (NEG) NEG Urine Bilirubin (NEG) NEG Urine Urobilinogen (0.1 - 1.0 EU/dl) 0.2 Ur Leukocyte Esterase (NEG) NEG Ur Microscopic SEDIMENT EXAMINED Urine RBC (0 - 5 /HPF) RARE Urine WBC (0 - 2 /HPF) RARE Ur Epithelial Cells (NONE,FEW) MOD H Urine Hemoglobin (NEG) NEG Urine Glucose (N MG/DL) >=1000 H Urine Test NEGATIVE Diagnostic Data EKG Results Multiple EKG shows sinus rhythm and are within normal limits CXR Results PATIENT: MALORIE PHILLIP PRESENT AGE: 47 PATIENT ACCOUNT NO: [id number] : 71 LOCATION: [facility] ORDERING PHYSICIAN: Susan VAUGHN SERVICE DATE: 09/07/17 EXAM TYPE: RAD - XRY-CHEST XRAY, TWO VIEWS EXAMINATION: XR CHEST CLINICAL INFORMATION: Chest pain. COMPARISON: Prior chest radiographs, most recently 05/06/2017. TECHNIQUE: 2 views of the chest were obtained. FINDINGS: No significant abnormality is noted involving the heart, lungs, mediastinum, bony thorax or soft tissues. IMPRESSION: Unremarkable examination. DICTATED BY: Vicente Muhammad MD DATE/TIME DICTATED:09/07/171301 GOLF TOURNAMENT CONSULTANT:RJ DATE/TIME TRANSCRIBED:09/07/171301 CONFIDENTIAL, DO NOT COPY WITHOUT APPROPRIATE AUTHORIZATION. <Electronically signed in Other Vendor System> SIGNED BY: Vicente Muhammad MD 09/07/17 1306 Assessment/Plan Assessment/Plan This patient presents with the left sided chest and shoulder pain. Her pain is reproducible with palpation. She has negative enzymes and EKGs. She had a recent cardiac workup which is said to be negative. I think her discomfort is clearly noncardiac and she can be discharged from a cardiac standpoint pending her other issues. She has elevated cholesterol. Her home med list includes a statin but it is not clear she has been taking this. This should be restarted and she should have follow-up lipids as outpatient. Copies To: Gabriele HALL,Niki Casey; Estephania HALL,Jann Consult Acknowledgment - Thank you for your consult request. Consult Acknowledgment - Thank you for your consult request.
--- NOTE | 2017-09-08 11:18 | Patient Discharge Instructions ---
Discharge Instructions General Discharge Information Special Instructions: Please follow up with your pcp in 1 week. Please follow up with your safe deposit box rental clerk in 1 week. Please follow up with the safe deposit box rental clerk you saw in the hospital Dr. Aguirre in 1-2 weeks. Please talk to your PCP to get an MRI of your abdomen for your pancreas. Please continue taking your medications as perscribed. Acute Coronary Syndrome Inclusion Criteria At DC or during hospital stay patient has or had the following: ACS DIAGNOSIS No Discharge Core Measures Meds if any: Prescribed or Continued at Discharge Meds if any: NOT Prescribed or Continued at Discharge Congestive Heart Failure Inclusion Criteria At DC or during hospital stay patient has or had the following: CHF DIAGNOSIS No Discharge Core Measures Meds if any: Prescribed or Continued at Discharge Meds if any: NOT Prescribed or Continued at Discharge Cerebrovascular accident Inclusion Criteria At DC or during hospital stay patient has or had the following: CVA/TIA Diagnosis No Discharge Core Measures Meds if any: Prescribed or Continued at Discharge Meds if any: NOT Prescribed or Continued at Discharge Venous thromboembolism Inclusion Criteria VTE Diagnosis No VTE Type NONE VTE Confirmed by (Test) NONE Discharge Core Measures - Per Current guidelines, there needs to be overlap - treatment for the first 5 days of Warfarin therapy. - If discharged on Warfarin prior to 5 days of - overlap therapy, the patient will need to be - assessed for post discharge needs including - *Post discharge parental anticoagulation - *Warfarin and/or parental anticoagulation education - *Follow up date to check INR post discharge At least 5 days overlap therapy as Inpatient No Meds if any: Prescribed or Continued at Discharge Note: Overlap Therapy is Warfarin and Anticoagulant Meds if any: NOT Prescribed or Continued at Discharge
== END 2017-09-08 14:30 ==
LOC: ERH 11:29 → ERHI 22:20 → 1NO 22:20 → ENPENDDIS 09-08 13:49 → ENTRNSPT 09-08 14:25 → 1NO 09-08 14:30 → CMPTRNSPT 09-08 14:36
PROVIDERS: Hospitalist; Physician Assistant
DX: R07.89 Other chest pain (principal); E11.9 Type 2 diabetes mellitus without complications; Z79.4 Long term (current) use of insulin; Z79.84 Long term (current) use of oral hypoglycemic drugs; I10 Essential (primary) hypertension; Z79.82 Long term (current) use of aspirin; F41.9 Anxiety disorder, unspecified; F32.9 Major depressive disorder, single episode, unspecified; J44.9 Chronic obstructive pulmonary disease, unspecified; E78.5 Hyperlipidemia, unspecified; G43.909 Migraine, unspecified, not intractable, without status migrainosus; K21.9 Gastro-esophageal reflux disease without esophagitis; G47.00 Insomnia, unspecified; M19.90 Unspecified osteoarthritis, unspecified site; G89.29 Other chronic pain; Z87.891 Personal history of nicotine dependence
CPT/HCPCS: 6020; 36592; 71046; 74177; 80307; 81001; 81025; 82436; 93005; 93010; 96372; 96374; 96375; 96376; 99291; G0378; G0480; J0131; J1650; J3490

== ENCOUNTER 2017-10-28 13:28 | Emergency (ER) | payer OTHER ==
[~2017-10-28] VITALS: Ht 162.6 cm; Wt 82.6 kg
[2017-10-28 15:34] LABS: ABSOLUTE BASOPHIL COUNT 0 /CUMM (0.0-0.2); ABSOLUTE EOSINOPHIL COUNT 0 /CUMM (0.0-0.7); ABSOLUTE GRANULOCYTE CT 6.6 /CUMM (1.4-6.5); ABSOLUTE LYMPH COUNT 1.5 /CUMM (1.2-3.4); ABSOLUTE MONOCYTE COUNT 0.6 /CUMM (0.10-0.60); BASOPHIL % 0.5 % (0.0-2.0); EOSINOPHIL % 0.3 % (0-5); HEMATOCRIT 39.4 % (37-47); MEAN CORPUSCULAR HGB 28.4 PG (27.0-31.0); MEAN CORPUSCULAR HGB CONC 34.1 G/DL (33.0-37.0); MEAN CORPUSCULAR VOLUME 83.1 FL (81.0-99.0); MEAN PLATELET VOLUME 7.6 FL (7.4-10.4); PLATELET COUNT 331 /CUMM (130-400); RBC DISTRIBUTION WIDTH 13.1 % (11.5-14.5); RED BLOOD CELL CT 4.74 /CUMM (4.20-5.40); WHITE BLOOD CELL COUNT 8.7 /CUMM (4.8-10.8)
--- NOTE | 2017-10-28 17:01 | ED GI/GU/ABDOMINAL COMPLAINT ---
History of Present Illness General Chief Complaint: Abdominal Pain/Flank Pain Stated Complaint: ABD PAIN Source: patient, old records Exam Limitations: no limitations Vital Signs & Intake/Output Vital Signs & Intake/Output Vital Signs Date Time Temp Pulse Resp B/P B/P Pulse O2 O2 Flow FiO2 Mean Ox Delivery Rate 10/28 1726 99.2 76 18 113/68 98 Room Air 10/28 1340 98.2 83 18 145/79 96 Room Air Allergies Coded Allergies: adhesive (Intermediate, RASH CLEAR/PAPER TAPE 05/02/17) celecoxib (From Celebrex) (Intermediate, RASH 05/02/17) escitalopram (From Lexapro) (Intermediate, RASH 05/02/17) triamcinolone (Intermediate, RASH 05/02/17) NSAIDS (Non-Steroidal Anti-Inflamma (ULCER 05/02/17) latex (RASH 05/02/17) Reconcile Medications Albuterol Sulfate (Proair Hfa) 90 MCG HFA.AER.AD 2 PUF INH Q4-6 PRN PRN SHORTNESS OF BREATH (Reported) Aspirin (Ecotrin*) 81 MG TABLET.DR 1 TAB PO DAILY HEART/BLOOD (Reported) Cyclobenzaprine HCl 10 MG TABLET 1 TAB PO TID muscle spasms Hydrochlorothiazide 12.5 MG TABLET 1 TAB PO DAILY WATER PILL (Reported) Insulin Lispro (Humalog Kwikpen U-100) 100 UNIT/ML INSULN.PEN 8 UNITS SC QPM DM (Reported) Insulin-Lantus (Lantus) 100 UNIT/ML VIAL 50 UNITS SC QPM DM (Reported) Loperamide HCl (Loperamide) 2 MG TABLET 1 TAB PO DAILY PRN DIARRHEA Losartan Potassium (Cozaar) 50 MG TABLET 1 TAB PO DAILY BP (Reported) Meloxicam (Mobic) 15 MG TABLET 1 TAB PO DAILY PRN pain Ondansetron (Zofran Odt) 4 MG TAB.RAPDIS 1 TAB SL TID NAUSEA Pantoprazole Sodium 40 MG TABLET.DR 1 TAB PO DAILY GI (Reported) Pravastatin Sodium 20 MG TABLET 1 TAB PO DAILY CHOLESTEROL (Reported) Sertraline HCl 100 MG TABLET 1 TAB PO DAILY MENTAL HEALTH (Reported) Sitagliptin Phos/Metformin HCl (Janumet 50-1,000 MG Tablet) 50 MG-1,000 MG TABLET 1 TAB PO BID DM (Reported) Trazodone HCl 100 MG TABLET 1 TAB PO QPM SLEEP (Reported) Triage Note: PT BIBA: TO ER C/C LOW BACK PAIN, N/V X 1 DAY. ALSO C/O MIGRAINE HEADACHE X 3 DAYS. +PHOTOSENSITIVITY. AFEBRILE. DENIES URINARY S/S Triage Nurses Notes Reviewed? yes ? N Is pt currently ? No HPI: Patient presents with 2 complaints. Her first complaint is migraine headache that she's had counseling for the past 4 days. Pain is constant. The pain is frontal. There is no radiation. Positive photophobia. Positive nausea but no vomiting. No radiation of the pain. She rates the pain a 10 out of 10. Patient is also complaining of bilateral lower quadrant crampy pain for the past 2 days. The pain is constant. She rates the pain is 8 out of 10. There are no aggravating or mitigating factors. There's no diarrhea or constipation. There is no dysuria or hematuria. Past History Travel History Traveled to [place] past 21 day No Medical History Any Pertinent Medical History? 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 No Review of Systems Review of Systems Constitutional: Reports: no symptoms. EENTM: Reports: no symptoms. Respiratory: Reports: no symptoms. Cardiovascular: Reports: no symptoms. GI: Reports: see HPI, abdominal pain. Genitourinary: Reports: no symptoms. Musculoskeletal: Reports: no symptoms. Skin: Reports: no symptoms. Neurological/Psychological: Reports: see HPI, headache. Hematologic/Endocrine: Reports: no symptoms. Immunologic/Allergic: Reports: no symptoms. All Other Systems: Reviewed and Negative Physical Exam Physical Exam General Appearance: well developed/nourished, alert, awake, mild distress Head: atraumatic, normal appearance Eyes: Bilateral: PERRL, EOMI. Ears, Nose, Throat, Mouth: hearing grossly normal, DRY MM Neck: normal inspection, supple, full range of motion Respiratory: normal breath sounds, chest non-tender, no respiratory distress, quiet respiration Cardiovascular: regular rate/rhythm, normal peripheral pulses Gastrointestinal: normal bowel sounds, soft, non-tender, no organomegaly Back: normal inspection, normal range of motion Extremities: normal range of motion Neurologic/Psych: no motor/sensory deficits, awake, alert, oriented x 3, normal gait, normal mood/affect Core Measures ACS in differential dx? No Sepsis Present: No Sepsis Focused Exam Completed? No Progress Differential Diagnosis: appendicitis, diverticulitis, ischemic bowel, inflamm bowel dis, pancreatitis, PID/cervicitis, SBO Plan of Care: Orders Procedure Date/time Status URINE 10/28 1343 Complete URINALYSIS 10/28 1343 Complete LIPASE 10/28 1343 Complete COMPREHENSIVE METABOLIC PANEL 10/28 1343 Complete CBC WITHOUT DIFFERENTIAL 10/28 1343 Complete AMYLASE 10/28 1343 Complete Current Medications Sig/Massimo Start time Last Medication Dose Stop Time Status Admin Ondansetron HCl 4 MG ONCE ONE 10/28 1899 UNVr (Zofran) 10/28 190 Laboratory Tests 10/28/17 1523: Anion Gap 12, Estimated GFR > 60, BUN/Creatinine Ratio 21.4, Glucose 135 H, Calcium 8.9, Total Bilirubin 0.5, AST 18, ALT 23, Alkaline Phosphatase 87, Total Protein 6.3, Albumin 3.7, Globulin 2.6, Albumin/Globulin Ratio 1.4, Amylase 94, Lipase 135, CBC w Diff NO MAN DIFF REQ, RBC 4.74, MCV 83.1, MCH 28.4, MCHC 34.1, RDW 13.1, MPV 7.6, Gran % 76.0 H, Lymphocytes % 16.8 L, Monocytes % 6.4, Eosinophils % 0.3, Basophils % 0.5, Absolute Granulocytes 6.6 H, Absolute Lymphocytes 1.5, Absolute Monocytes 0.6, Absolute Eosinophils 0, Absolute Basophils 0 10/28/17 1411: Urinalysis LIGHT H, Urine Color YEL, Urine Clarity HAZY H, Urine pH 5.5, Ur Specific [place] >= 1.030, Urine Protein 100 H, Urine Ketones NEG, Urine Nitrite NEG, Urine Bilirubin NEG@ICTO, Urine Urobilinogen 1.0, Ur Leukocyte Esterase TRACE H, Ur Microscopic SEDIMENT EXAMINED, Urine RBC 1-3, Urine WBC RARE, Ur Epithelial Cells MANY H, Urine Bacteria MANY H, Urine Hemoglobin NEG, Urine Glucose NEG, Urine Test NEGATIVE Diagnostic Imaging: Viewed by Me: CT Scan. Discussed w/RAD: CT Scan. Radiology Impression: PATIENT: MALORIE PHILLIP PRESENT AGE: 47 PATIENT ACCOUNT NO: [id number] : 71 LOCATION: [facility] ORDERING PHYSICIAN: Gumaro Crocker MD SERVICE DATE: 10/28/17 EXAM TYPE: CAT - CT ABD & PELVIS W IV CONTRAST EXAMINATION: CT ABDOMEN AND PELVIS WITH CONTRAST CLINICAL INFORMATION: Right lower quadrant pain. COMPARISON: CT scan abdomen pelvis 09/07/2017 TECHNIQUE: Multidetector volumetric imaging was performed of the abdomen and pelvis following IV administration of 95 mL of Optiray 320 intravenous contrast. Sagittal and coronal reformatted images were obtained on the technologist's workstation. DLP: 408.81 mGy-cm FINDINGS: LUNG BASES: The visualized lung bases are unremarkable. LIVER, GALLBLADDER, AND BILIARY TREE: The liver is normal in size, shape, and attenuation. No focal hepatic lesion or biliary ductal dilatation is present. The gallbladder is unremarkable with no evidence of radiopaque gallstones, gallbladder wall thickening, or obvious pericholecystic inflammatory changes. PANCREAS: Unremarkable. SPLEEN: Unremarkable. ADRENAL GLANDS: Unremarkable. KIDNEYS AND URETERS: The kidneys are normal in size, shape, and attenuation. No hydronephrosis, hydroureter, or calculi seen. No perinephric stranding. BLADDER: Unremarkable. GASTROINTESTINAL TRACT: The small and large bowel are unremarkable. The appendix is unremarkable. ABDOMINAL WALL: No significant hernia is appreciated. LYMPH NODES: Normal. VASCULAR: Unremarkable. PELVIC VISCERA: Uterus is absent. No adnexal abnormality. OSSEOUS STRUCTURES: Degenerative spondylosis spine with multilevel endplate spurring of the vertebrae. IMPRESSION: No acute abnormality CT scan abdomen pelvis. DICTATED BY: Valente Soto MD DATE/TIME DICTATED:10/28/171833 YARD LABORER:RJ DATE/TIME TRANSCRIBED:10/28/171833 CONFIDENTIAL, DO NOT COPY WITHOUT APPROPRIATE AUTHORIZATION. <Electronically signed in Other Vendor System> SIGNED BY: Valente Soto MD 10/28/17 184 Initial ED EKG: none Comments: Labs and CAT scan results discussed with the patient. Questions have been answered. Departure Departure Disposition: HOME OR SELF CARE Condition: Stable Clinical Impression Primary Impression: Migraine Secondary Impressions: Lower abdominal pain, unspecified Referrals: Unknown (PCP) Additional Instructions: RETURN IF SYMPTOMS WORSENOR FOR ANY CONCERNS Departure Forms: Customer Survey General Discharge Information Prescriptions: Current Visit Scripts Ondansetron (Zofran Odt) 1 TAB SL TID PRN NAUSEA #10 TAB
[2017-10-28 17:26] VITALS: BP 113/68
--- NOTE | 2017-10-28 18:43 | CT SCAN REPORT ---
EXAMINATION: CT ABDOMEN AND PELVIS WITH CONTRAST CLINICAL INFORMATION: Right lower quadrant pain. COMPARISON: CT scan abdomen pelvis 09/07/2017 TECHNIQUE: Multidetector volumetric imaging was performed of the abdomen and pelvis following IV administration of 95 mL of Optiray 320 intravenous contrast. Sagittal and coronal reformatted images were obtained on the technologist's workstation. DLP: 408.81 mGy-cm FINDINGS: LUNG BASES: The visualized lung bases are unremarkable. LIVER, GALLBLADDER, AND BILIARY TREE: The liver is normal in size, shape, and attenuation. No focal hepatic lesion or biliary ductal dilatation is present. The gallbladder is unremarkable with no evidence of radiopaque gallstones, gallbladder wall thickening, or obvious pericholecystic inflammatory changes. PANCREAS: Unremarkable. SPLEEN: Unremarkable. ADRENAL GLANDS: Unremarkable. KIDNEYS AND URETERS: The kidneys are normal in size, shape, and attenuation. No hydronephrosis, hydroureter, or calculi seen. No perinephric stranding. BLADDER: Unremarkable. GASTROINTESTINAL TRACT: The small and large bowel are unremarkable. The appendix is unremarkable. ABDOMINAL WALL: No significant hernia is appreciated. LYMPH NODES: Normal. VASCULAR: Unremarkable. PELVIC VISCERA: Uterus is absent. No adnexal abnormality. OSSEOUS STRUCTURES: Degenerative spondylosis spine with multilevel endplate spurring of the vertebrae. IMPRESSION: No acute abnormality CT scan abdomen pelvis.
[2017-10-28] MEDS ORDERED: ZOFRAN ODT4 M1 SL (18:58)
== END 2017-10-28 19:16 ==
LOC: ERH 13:28
PROVIDERS: Physician Assistant Medical
DX: G43.909 Migraine, unspecified, not intractable, without status migrainosus (principal); R10.32 Left lower quadrant pain; R10.31 Right lower quadrant pain
CPT/HCPCS: 74177; 81001; 81025; 96374; 96375; J0131; J1200; J2405

== ENCOUNTER 2018-01-23 19:32 | Emergency (ER) | payer OTHER ==
[~2018-01-23] VITALS: Ht 162.6 cm; Wt 79.4 kg
[~2018-01-23 19:32] MED LIST changes: +AMOXICILLIN875 M1 PO; +TYLENOL WITH C1 EACH PO
[2018-01-23 19:36] VITALS: BP 120/81
--- NOTE | 2018-01-23 20:59 | ED EAR COMPLAINT ---
History of Present Illness General Chief Complaint: Ear Complaints Stated Complaint: "CAN NOT HEAR WELL FROM MY LEFT EAR" Source: patient Exam Limitations: no limitations Vital Signs & Intake/Output Vital Signs & Intake/Output Vital Signs Date Time Temp Pulse Resp B/P B/P Pulse O2 O2 Flow FiO2 Mean Ox Delivery Rate 01/230 98 Room Air 01/23 1936 99.0 92 18 120/81 98 Room Air ED Intake and Output 01/24 0000 01/23 1200 Intake Total 0 Output Total Balance 0 Intake, IV 0 Patient 175 lb Weight Weight Reported by Patient Measurement Method Allergies Coded Allergies: adhesive (Intermediate, RASH CLEAR/PAPER TAPE 05/02/17) celecoxib (From Celebrex) (Intermediate, RASH 05/02/17) escitalopram (From Lexapro) (Intermediate, RASH 05/02/17) triamcinolone (Intermediate, RASH 05/02/17) NSAIDS (Non-Steroidal Anti-Inflamma (ULCER 05/02/17) latex (RASH 05/02/17) Reconcile Medications Albuterol Sulfate (Proair Hfa) 90 MCG HFA.AER.AD 2 PUF INH Q4-6 PRN PRN SHORTNESS OF BREATH (Reported) Amoxicillin 875 MG TABLET 1 TAB PO BID PHARYNGITIS Aspirin (Ecotrin*) 81 MG TABLET.DR 1 TAB PO DAILY HEART/BLOOD (Reported) Cortisporin (Cortisporin Ointment) 1 % OINT...G. 10 GTT BID Ear pain Cyclobenzaprine HCl 10 MG TABLET 1 TAB PO TID muscle spasms Hydrochlorothiazide 12.5 MG TABLET 1 TAB PO DAILY WATER PILL (Reported) Insulin Lispro (Humalog Kwikpen U-100) 100 UNIT/ML INSULN.PEN 8 UNITS SC QPM DM (Reported) Insulin-Lantus (Lantus) 100 UNIT/ML VIAL 50 UNITS SC QPM DM (Reported) Loperamide HCl (Loperamide) 2 MG TABLET 1 TAB PO DAILY PRN DIARRHEA Losartan Potassium (Cozaar) 50 MG TABLET 1 TAB PO DAILY BP (Reported) Meloxicam (Mobic) 15 MG TABLET 1 TAB PO DAILY PRN pain Ondansetron (Zofran Odt) 4 MG TAB.RAPDIS 1 TAB SL TID NAUSEA Ondansetron (Zofran Odt) 4 MG TAB.RAPDIS 1 TAB SL TID PRN NAUSEA Pantoprazole Sodium 40 MG TABLET.DR 1 TAB PO DAILY GI (Reported) Pravastatin Sodium 20 MG TABLET 1 TAB PO DAILY CHOLESTEROL (Reported) Sertraline HCl 100 MG TABLET 1 TAB PO DAILY MENTAL HEALTH (Reported) Sitagliptin Phos/Metformin HCl (Janumet 50-1,000 MG Tablet) 50 MG-1,000 MG TABLET 1 TAB PO BID DM (Reported) Trazodone HCl 100 MG TABLET 1 TAB PO QPM SLEEP (Reported) Tylenol With Codeine (Tylenol With Codeine #3 Tablet) 300 MG-30 MG TABLET 1 TAB PO BIDP PRN PAIN Triage Note: PT TO ED C/O LEFT EAR BEING "PLUGGED" FOR A MONTH. "I CAN'T HEAR OUT OF IT" Triage Nurses Notes Reviewed? yes HPI: 47-year-old female presents emergency department complaining of decreased hearing from her left ear. Patient states she has had the symptoms for about 1 month now. Denies any pain in the ear. No fevers or chills. No drainage from the ear. She does use Q-tips daily. Denies headache, nausea or vomiting. No dizziness or lightheadedness. No vertiginous symptoms. (Maxwell Medellin PA-C) Past History Travel History Traveled to [place] past 21 day No Medical History Any Pertinent Medical History? 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 No (Maxwell Medellin PA-C) Review of Systems Review of Systems Constitutional: Reports: no symptoms. EENTM: Reports: see HPI. Respiratory: Reports: no symptoms. Cardiovascular: Reports: no symptoms. GI: Reports: no symptoms. Genitourinary: Reports: no symptoms. Musculoskeletal: Reports: no symptoms. Skin: Reports: no symptoms. All Other Systems: Reviewed and Negative (Maxwell Medellin PA-C) Physical Exam Physical Exam General Appearance: well developed/nourished, no apparent distress Head: atraumatic, normal appearance Eyes: Bilateral: normal appearance, PERRL. Ears: Bilateral: canal normal, Tympanic normal. Mouth/Throat: normal mouth inspection, pharynx normal Neck: normal inspection, No lymphadenopathy Skin: intact, normal color, warm/dry Comments: LEft ear TM intact and non erythematous. EAC clear no drainage or swelling. Pinna and tragus non TTP. No external rashes. No FB. (Maxwell Medellin PA-C) Progress Differential Diagnoses I considered the following diagnoses in my evaluation of the patient: [otalgia, otitis externa, otitis media, TM perforation, sensorineural hearing loss, conductive hearing loss, cerumen impaction.] Plan of Care: 47-year-old female who is well-appearing on exam presenting with decreased hearing from her left ear 1 month. There is no evidence of infection on exam. TM is intact in normal-appearing. No evidence of serous effusion. She has no neurological deficits. No tinnitus. No headache. No vertiginous symptoms. We will have her follow-up with ENT. We will start her on an eardrop to cover for infection. Return to the emergency department immediately with any worsening symptoms. She is in agreement with plan of care. Initial ED EKG: none (Maxwell Medellin PA-C) Departure Departure Time of Disposition: 2057 Disposition: HOME OR SELF CARE Condition: Stable Clinical Impression Primary Impression: Otalgia of left ear Referrals: Herminio Lei MD Additional Instructions: Use drops as prescribed. Follow up with ENT this week for further evaluation. Departure Forms: Customer Survey General Discharge Information Prescriptions: Current Visit Scripts Cortisporin (Cortisporin Ointment) 10 GTT BID 7 Days (Maxwell Medellin PA-C) PA/PIPE [employer] MOLDER Co-Sign Statement Statement: ED Attending supervision documentation- [] I saw and evaluated the patient. I have also reviewed all the pertinent lab results and diagnostic results. I agree with the findings and the plan of care as documented in the PA's/PIPE [employer]TINGS MOLDER's documentation. [x] I have reviewed the ED Record and agree with the PA's/PIPE [employer] MOLDER's documentation. [] Additions or exceptions (if any) to the PAs/PIPE [employer]TINGS MOLDER's note and plan are summarized below: [] (Jann Swain DO
[2018-01-23] MEDS ORDERED: CORTISPORIN OIN15 G1 AS (21:04)
== END 2018-01-23 22:24 ==
LOC: ERH 19:32
DX: H92.02 Otalgia, left ear (principal)